=== PATIENT | male | born 1970 | race Caucasian/White ===

== ENCOUNTER 2020-10-31 05:18 | Inpatient (IN) | payer MEDICAID ==
[~2020-10-31] VITALS: Ht 170.2 cm; Wt 86.2 kg
--- NOTE | 2020-10-31 05:35 | NUR ---
pt danyelle c/o nosebleed that started at 0230. Pt aaox4 breathing evenly and unlabored. Per pt, he ran out of his hypertension meds x2 days ago and woke up with the nosebleed today. Pt also admits to "feeling my heart pounding" and being nauseous. Pt attached to monitor and pox. Pt given blanket and calllight within reach. will continue to monitor.
--- NOTE | 2020-10-31 05:53 | NUR ---
blood obtained and sent to lab
[2020-10-31 05:57] LABS: BASOPHILS % (AUTO) 0.4 % (0.0-2.0); EOSINOPHILS % (AUTO) 1.1 % (0.0-6.0); HEMATOCRIT 38 % (33-45); HEMOGLOBIN 12.5 g/dL (11.5-14.8); LYMPHOCYTES # (AUTO) 1.4 K/uL (0.8-4.8); LYMPHOCYTES % (AUTO) 44.1 % (20.0-44.0); MEAN CORPUSCULAR HGB CONC 33 g/dl (31.0-36.0); MEAN CORPUSCULAR VOLUME 88 fL (82-100); MONOCYTES # (AUTO) 0.1 K/uL (0.1-1.30); MONOCYTES % (AUTO) 3.3 % (2.0-12.0); NEUTROPHILS # (AUTO) 1.6 K/uL (1.8-8.9); NEUTROPHILS % (AUTO) 51.1 % (43.0-81.0); RED BLOOD CELL COUNT(AUTO) 4.27 MIL/uL (4.0-5.2); WHITE BLOOD COUNT (AUTO) 3.2 K/uL (4.3-11.0)
--- NOTE | 2020-10-31 06:00 | NUR ---
xray at bedside
[2020-10-31 06:13] LABS: CALCIUM, SERUM 7.9 mg/dL (8.5-10.1); CREATININE 0.7 mg/dL (0.6-1.3); POTASSIUM 3.4 mmol/L (3.5-5.1)
[2020-10-31 06:19] LABS: ALBUMIN 3.5 g/dL (3.4-5.0); BILIRUBIN,DIRECT 0.6 mg/dL (0.0-0.2); BILIRUBIN,TOTAL 1.3 mg/dL (0.2-1.0)
[2020-10-31] MEDS ORDERED: LORAZEPAM INJ 2 MG/ML VIAL ONE (06:42)
[2020-10-31] MEDS ORDERED: IV NS 0.9% 1,000 ML IV ONE (07:00)
[2020-10-31] MEDS ORDERED: LORAZEPAM INJ 2 MG/ML VIAL IV ONE (07:00)
--- NOTE | 2020-10-31 07:20 | NUR ---
gave report to VIV Pitts for jennifer
[2020-10-31] MEDS ORDERED: ASPIRIN 81 MG TAB.CHEW PO ONE (08:00)
[2020-10-31] MEDS ORDERED: ONDANSETRON HCL/PF 4 MG/2 ML VIAL IV ONE (08:00)
[2020-10-31 08:04] LABS: PLATELET COUNT (AUTO) 41 K/uL (150-450)
[2020-10-31 08:08] LABS: EOSINOPHILS % (MANUAL) 2 % (0-4); LYMPHOCYTES % (MANUAL) 43 % (16-48); MONOCYTES % (MANUAL) 3 % (0-11.0); NEUTROPHILS % (MANUAL) 52 (42-76)
[2020-10-31] MEDS ORDERED: ASPIRIN 81 MG TAB.CHEW ONE (08:18)
[2020-10-31] MEDS ORDERED: ONDANSETRON HCL/PF 4 MG/2 ML VIAL ONE (08:18)
--- NOTE | 2020-10-31 08:28 | NUR ---
COVID ANTIGEN SWAB DONE AND SENT TO LAB
[2020-10-31 08:40] LABS: ALCOHOL, BLOOD 209 mg/dL (0-0); LIPASE 315 U/L (73-393)
[2020-10-31] MEDS ORDERED: IV NS 0.9% 1,000 ML IV PRN (10:00)
[2020-10-31] MEDS ORDERED: ONDANSETRON HCL/PF 4 MG/2 ML VIAL IVP PRN (10:00)
[2020-10-31] MEDS ORDERED: ACETAMINOPHEN 325 MG TABLET PO PRN (10:00)
[2020-10-31] MEDS ORDERED: MAG HYDROX/AL HYDROX/SIMETH 30 ML UDC PO PRN (10:00)
[2020-10-31] MEDS ORDERED: POTASSIUM CHLORIDE 20 MEQ TAB.PRT.SR PO ONE (10:12)
[2020-10-31] MEDS: POTASSIUM CHLORIDE 20 MEQ TAB.PRT.SR PO SCH ×3 (10:19→12:17)
--- NOTE | 2020-10-31 10:53 | NUR ---
ROOM 315-2
--- NOTE | 2020-10-31 11:05 | NUR ---
REPORT GIVEN TO ELEN NAM
--- NOTE | 2020-10-31 11:10 | NUR ---
DRYWALL STRIPPER NOTE PT IN 315-2 VIA AUGUST. V/S CHECKED. PT AWAKE IN BED RESTING. ON RA WITH NO SOB OR RESPIRATORY DISTRESS PRESENT. A/O X4 AND URDU SPEAKING. NO COMPLAINT OF PAIN OR NAUSEA. CURRENTLY ON WEB APPLICATIONS ARCHITECT. NO EDEMA PRESENT. PT IS AMBULATORY WITH STEADY GAIT AND BATHROOM PRIVILEGES. SKIN IS INTACT.IV PRESENT ON L AC 20G AND FLUSHES WELL. NS RUNNING AT 75 ML/HR. LABS AND ORDERS REVIEWED. SAFETY MEASURES IN PLACE. SIDE RAILS RAISED. BED LOWERED. CALL LIGHT WITHIN REACH. WILL CONTINUE TO MONITOR.
--- NOTE | 2020-10-31 11:30 | NUR ---
RN NOTE PT STARTED NOSEBLEED, SATURATING 50% OF GAUZE SPONGES. ICE GIVEN, EDUCATION GIVEN TO PINCH NOSE AND LEAN FORWARD. DR NOTIFIED AND ORDERS RECEIVED. WILL CONTINUE TO MONITOR.
[2020-10-31] MEDS: METOPROLOL TARTRATE 50 MG TABLET PO SCH ×3 (11:33→23:04)
[2020-10-31] MEDS: LORAZEPAM INJ 2 MG/ML VIAL IV PRN (12:29)
[2020-10-31] MEDS ORDERED: PHYTONADIONE INJ 10 MG/1 ML AMPUL SQ ONE (12:30)
[2020-10-31 13:07] LABS: PHOSPHORUS 4.1 mg/dL (2.5-4.9)
[2020-10-31 13:08] LABS: THYROID STIMULATING HORMONE 1.07 uIU/mL (0.358-3.74)
[2020-10-31 13:23] LABS: MAGNESIUM 2.1 mg/dL (1.8-2.4)
[2020-10-31 14:40] LABS: HEMOGLOBIN 10.7 g/dL (13.5-17.5)
--- NOTE | 2020-10-31 15:00 | NUR ---
RN NOTE PT NOSEBLEED STOPPED. PT AWAKE IN BED. NO DIZZINESS OR HEADACHE PRESENT. WILL CONTINUE TO MONITOR.
[2020-10-31] MEDS ORDERED: METO-357 PO (15:40)
--- NOTE | 2020-10-31 18:13 | NUR ---
RN CLOSING NOTE PT AWAKE IN BED RESTING. ON RA WITH NO SOB OR RESPIRATORY DISTRESS PRESENT. A/O X4 AND PASHTO SPEAKING. NO COMPLAINT OF PAIN OR NAUSEA. CURRENTLY ON MEDICAL PLANNER. NO EDEMA PRESENT. PT IS AMBULATORY WITH STEADY GAIT AND BATHROOM PRIVILEGES. SKIN IS INTACT.IV PRESENT ON L AC 20G AND FLUSHES WELL. NS RUNNING AT 75 ML/HR. LABS AND ORDERS REVIEWED. ROUTINE MEDS GIVEN. SAFETY MEASURES IN PLACE. SIDE RAILS RAISED. BED LOWERED. CALL LIGHT WITHIN REACH. WILL GIVE REPORT TO NIGHT NURSE FOR VICTOR HUGO.
--- NOTE | 2020-10-31 19:00 | NUR ---
opening notes: alert and orientated X3 soft spoken will make his needs known juice offered and assisted with swallows w/o problem asp precautions call light reviewed with him and he reassusred me "I know how it works!" near the nursing station.no sob 02 on2 liters Addendum: 11/01/20 at 0146 by CRUZITO LOPEZ RN above charting done on the wrong patient disregard
--- NOTE | 2020-10-31 19:00 | NUR ---
received patient ambilating in his room alert and orientated smiling no nose bleeding
[2020-10-31 20:00] VITALS: BP 139/65
[2020-11-01] VITALS: BP 136/72
[2020-11-01] MEDS: LORAZEPAM INJ 2 MG/ML VIAL IV PRN (03:08)
[2020-11-01 04:00] VITALS: BP 138/66
[2020-11-01] MEDS: METOPROLOL TARTRATE 50 MG TABLET PO SCH ×2 (06:57→12:34)
[2020-11-01 07:11] LABS: BASOPHILS % (AUTO) 0.2 % (0.0-2.0); EOSINOPHILS % (AUTO) 2.2 % (0.0-6.0); HEMATOCRIT 35 % (39-51); HEMOGLOBIN 11.6 g/dL (13.5-17.5); LYMPHOCYTES # (AUTO) 0.9 K/uL (0.8-4.8); LYMPHOCYTES % (AUTO) 26.5 % (20.0-44.0); MEAN CORPUSCULAR HGB CONC 33 g/dl (31.0-36.0); MEAN CORPUSCULAR VOLUME 90 fL (80-96); MONOCYTES # (AUTO) 0.4 K/uL (0.1-1.30); MONOCYTES % (AUTO) 10.7 % (2.0-12.0); NEUTROPHILS # (AUTO) 2.1 K/uL (1.8-8.9); NEUTROPHILS % (AUTO) 60.4 % (43.0-81.0); RED BLOOD CELL COUNT(AUTO) 3.89 MIL/uL (4.5-6.0); WHITE BLOOD COUNT (AUTO) 3.5 K/uL (4.3-11.0)
[2020-11-01 07:28] LABS: PLATELET COUNT (AUTO) 34 K/uL (150-450)
--- NOTE | 2020-11-01 07:30 | NUR ---
LIEUTENANT FIREFIGHTER NOTES PT IN BED, AWAKE, ALERT AND ORIENTED, DENIES PAIN OR ANY DISCOMFORT, STATES HE FEELS BETTER TODAY, IV FLUIDS INFUSING WELL, CALL LIGHT WITHIN REACH.
[2020-11-01 07:33] LABS: ALBUMIN 3.2 g/dL (3.4-5.0); BILIRUBIN,TOTAL 2.9 mg/dL (0.2-1.0); CREATININE 0.7 mg/dL (0.6-1.3); MAGNESIUM 1.8 mg/dL (1.8-2.4); PHOSPHORUS 3.2 mg/dL (2.5-4.9); POTASSIUM 4.3 mmol/L (3.5-5.1); TOTAL PROTEIN, SERUM 7.1 g/dL (6.4-8.2)
--- NOTE | 2020-11-01 07:37 | NUR ---
CLOSING NOTES: NSR THIS 12 HOURS ALERT AND ORIENTATED X4 AMBULATES IN THE ROOM NO SOB NO EDEMA NO C/O CHEST PAIN MEDICATED X1 WITH ATIVAN D/T UNABLE TO GO TO SLEEP D/T INSOMNIA..ATIVAN EFFCTIVE X3 HOURS NO NOSE BLEED THIS 12 HOURS
[2020-11-01 08:00] VITALS: BP 142/96
[2020-11-01 08:26] LABS: EOSINOPHILS % (MANUAL) 2 % (0-4); LYMPHOCYTES % (MANUAL) 29 % (16-48); MONOCYTES % (MANUAL) 7 % (0-11.0); NEUTROPHILS % (MANUAL) 62 (42-76)
[2020-11-01] MEDS ORDERED: METO50TA16 PO (11:27)
[2020-11-01 12:34] VITALS: BP 138/78
--- NOTE | 2020-11-01 13:24 | NUR ---
RN MS NOTES PT SEEN AND EXAMINED BY DR. PALM, PLAN OF CARE DISCUSSED WITH PT, VERBALIZED UNDERSTANDING, PT TO RECEIVE I UNIT OF PLATELET TRANSFUSION BEFORE BEING DISCHARGED.
--- NOTE | 2020-11-01 15:30 | NUR ---
RN MS NOTES PT AWAKE, ALERT AND ORIENTED, WALKING INSIDE HIS ROOM, NO COMPLAINT OF PAIN, NOT IN DISTRESS, NO SIGNS OF BLEEDING, SEEN BY DR. PALM TODAY, PT REFUSED TO PROCEED WITH PLATELET TRANSFUSION, STATED THAT HE NEEDS TO GO HOME NOW, PT EDUCATION PROVIDED REGARDING THE RISK OF HAVING A LOW PLATELET AND THE RISK OF BLEEDING, VERBALIZED UNDERSTANDING BUT CAN NO LONGER WAIT FOR THE PLATELET TO BE AVAILABLE, PER BLOOD BANK THEY DONT HAVE A SPECIFIC TIME TO WHEN THE PLATELET WILL BE READY THEY ORDER IT FROM OUTSIDE, PT STATED THAT HE WOULD LIKE TO BE DISCHARGED, DR. PALM INFORMED, DISCHARGE AND MEDICATION INSTRUCTIONS PROVIDED TO PT, INSTRUCTED PT TO SEE HIS PCP SOON POSSIBLE AND TO RETURN TO E.R. IN CASE OF EMERGENCY, BELONGINGS ACCOUNTED FOR, PRESCRIPTION GIVEN TO PT, ASSISTED TO HOSPITAL LOBBY, WILL BE PICKED UP BY HIS SISTER VIA [employer]ATE CAR.
== END 2020-11-01 15:30 | disposition home or self-care (01) | DRG 199 ==
LOC: ER 05:24 → EDSEX 05:24 → TELE 10:58 → MED 11-01 09:21
PROVIDERS: ADMIT Nurse Practitioner Acute Care; ATTEND Nurse Practitioner Acute Care
DX: I16.0 Hypertensive urgency (principal); D61.818 Other pancytopenia; I21.A1 Myocardial infarction type 2; G92 Toxic encephalopathy; D69.6 Thrombocytopenia, unspecified; Z88.0 Allergy status to penicillin; I10 Essential (primary) hypertension; F10.229 Alcohol dependence with intoxication, unspecified; R04.0 Epistaxis; K74.60 Unspecified cirrhosis of liver; E87.6 Hypokalemia; D64.9 Anemia, unspecified; D62 Acute posthemorrhagic anemia
CPT/HCPCS: 36415; 71045-TC; 80048-TC; 80053-TC; 80061-TC; 80076-TC; 82728-TC; 83540-TC; 83690-TC; 83735-TC; 84100-TC; 84439-TC; 84443-TC; 84484-TC; 85025-TC; 85027-TC; 85730-TC; 86850-TC; 87081-TC; 93307-TC; C9803; G0378; G0480; J2060; J2405; J3430; J7030

== ENCOUNTER 2020-11-29 22:50 | Inpatient (IN) | payer MEDICAID ==
[~2020-11-29] VITALS: Ht 170.2 cm; Wt 81.6 kg
[~2020-11-29 22:50] MED LIST: METO50TA16 PO
--- NOTE | 2020-11-29 23:07 | NUR ---
TO BED 4, A/OX3, C/O CHEST PRESSURE 6/10 NONRADIATING. ALSO C/O NAUSEA
--- NOTE | 2020-11-29 23:25 | NUR ---
XRAY AT BEDSIDE
--- NOTE | 2020-11-29 23:55 | NUR ---
MRSA SWAB COLLECTED AND SENT TO LAB. PATIENT'S BELONGINGS LIST DONE.
[2020-11-30 00:04] LABS: BASOPHILS % (AUTO) 0.3 % (0.0-2.0); HEMATOCRIT 41 % (39-51); HEMOGLOBIN 13.5 g/dL (13.5-17.5); LYMPHOCYTES # (AUTO) 3.3 K/uL (0.8-4.8); LYMPHOCYTES % (AUTO) 50.7 % (20.0-44.0); MEAN CORPUSCULAR HGB CONC 33 g/dl (31.0-36.0); MEAN CORPUSCULAR VOLUME 88 fL (80-96); MONOCYTES # (AUTO) 0.2 K/uL (0.1-1.30); MONOCYTES % (AUTO) 3.8 % (2.0-12.0); NEUTROPHILS # (AUTO) 2.9 K/uL (1.8-8.9); NEUTROPHILS % (AUTO) 44.2 % (43.0-81.0); PLATELET COUNT (AUTO) 62 K/uL (150-450); RED BLOOD CELL COUNT(AUTO) 4.65 MIL/uL (4.5-6.0); WHITE BLOOD COUNT (AUTO) 6.6 K/uL (4.3-11.0)
[2020-11-30 00:17] LABS: CALCIUM, SERUM 7.5 mg/dL (8.5-10.1); CREATININE 0.8 mg/dL (0.6-1.3); POTASSIUM 3.9 mmol/L (3.5-5.1)
--- NOTE | 2020-11-30 00:18 | NUR ---
PER LAB, LUZ Buckner MD AWARE
[2020-11-30 00:23] LABS: ALBUMIN 3.5 g/dL (3.4-5.0); BILIRUBIN,DIRECT 0.5 mg/dL (0.0-0.2); BILIRUBIN,TOTAL 1.2 mg/dL (0.2-1.0); TOTAL PROTEIN, SERUM 8.1 g/dL (6.4-8.2)
--- NOTE | 2020-11-30 00:39 | NUR ---
DR. BRIGHT ON PHONE WITH DR. OVALLE
--- NOTE | 2020-11-30 00:47 | NUR ---
DR. GARY FIELDS FOR PANEL
[2020-11-30] MEDS ORDERED: HYDROCODONE/APAP 5/325MG TABLET PO PRN (01:00)
[2020-11-30] MEDS ORDERED: MAG HYDROX/AL HYDROX/SIMETH 30 ML UDC PO PRN (01:00)
[2020-11-30] MEDS ORDERED: Z GUARD REMEDY 2 OZ OINT TP PRN (01:00)
[2020-11-30] MEDS ORDERED: MAGNESIUM HYDROXIDE 30 ML UDC PO PRN (01:00)
[2020-11-30] MEDS ORDERED: NITROGLYCERIN 0.4 MG/TAB BOTTLE SL PRN (01:00)
[2020-11-30] MEDS ORDERED: MORPHINE SULFATE INJ 2 MG/ML DISP.SYRIN IV PRN (01:00)
[2020-11-30] MEDS ORDERED: ZOLPIDEM TARTRATE 5 MG TABLET PO PRN (01:00)
[2020-11-30] MEDS ORDERED: ACETAMINOPHEN 325 MG TABLET PO PRN (01:00)
[2020-11-30 01:15] LABS: NEUTROPHILS % (MANUAL) 49 (42-76)
[2020-11-30 01:16] LABS: BASOPHILS % (MANUAL) 0 % (0.0-2.0); EOSINOPHILS % (MANUAL) 0 % (0-4); LYMPHOCYTES % (MANUAL) 46 % (16-48); MONOCYTES % (MANUAL) 5 % (0-11.0)
--- NOTE | 2020-11-30 03:10 | NUR ---
Informed dr. feliberto beck that patient states he is experiencing anxiety and would like medication. there is no PRN order. awaiting call back from .
[2020-11-30] MEDS: IV D5/0.45 NACL 1,000 ML IV PRN ×2 (03:16→15:01)
[2020-11-30] MEDS ORDERED: LORAZEPAM INJ 2 MG/ML VIAL ONE (04:39)
[2020-11-30] MEDS: LORAZEPAM INJ 2 MG/ML VIAL IV PRN ×3 (04:40→21:00)
[2020-11-30] MEDS: METOPROLOL TARTRATE 50 MG TABLET PO SCH ×3 (06:34→17:13)
[2020-11-30] MEDS ORDERED: METOPROLOL TARTRATE 50 MG TABLET ONE (06:34)
--- NOTE | 2020-11-30 07:30 | NUR ---
ASSESSED PT ON BED AWAKE AND ALERT, NOT IN RESPIRATORY DISTRESS, V/S STABLE, KEPT RESTED AND COMFORTABLE. WILL CONTINUE TO MONITOR.
[2020-11-30] MEDS ORDERED: PANTOPRAZOLE 40 MG TABLET.DR PO ONE (07:36)
[2020-11-30] MEDS: PANTOPRAZOLE 40 MG TABLET.DR PO SCH (07:40)
--- NOTE | 2020-11-30 09:40 | NUR ---
TELE/RN NOTES RECEIVED REPORT FORM [facility]LE ER NURSE A 49 Y/O MALE PATIENT, AWAKE , ALERT AND ORIENTED X4. PATIENT IN ON ROOM AIR. PATIENT IN NO APPARENT RESPIRATORY DISTRESS NOTED. NO COMPLAINED OF PAIN NOTED. IV ACCESS AT LEFT AC #18 G WITH IV FLUID OF D5NS 1L AT 75ML/HR ON AND INFUSING WELL. INITIAL ASSESSMENT WAS DONE, VITAL SIGN TAKEN AND RECORDED. PATIENT REFUSED SKIN ASSESSMENT AND PATIENT VERBALIZED HE DOESN'T HAVE SKIN PROBLEM OR WOUND. TELE MONITOR READING SINUS RHYTHM 86BPM. WILL CONTINUE TO MONITOR.
[2020-11-30 10:00] VITALS: BP 139/70
[2020-11-30] MEDS: THIAMINE HCL 100 MG TABLET PO SCH (11:24)
[2020-11-30] MEDS: ONDANSETRON HCL/PF 4 MG/2 ML VIAL IVP PRN (13:09)
--- NOTE | 2020-11-30 13:09 | NUR ---
RN NOTE PATIENT COMPLAINED OF NAUSEA AND FEELING IF HE WAS GOING TO THROW UP. PATIENT ASKED FOR PRN ANTINAUSEA MEDICATION. WILL GIVE MEDICATION ORDERED
[2020-11-30 16:33] VITALS: BP 140/67
--- NOTE | 2020-11-30 18:57 | NUR ---
MS/RN CLOSING NOTES PATIENT IS ALERT AND ORIENTED X4. PATIENT IS ON ROOM AIR. PATIENT IN NO APPARENT RESPIRATORY DISTRESS NOTED. NO COMPLAINED OF PAIN NOTED AT THIS TIME. SEEN AND EXAMINED BY MD WITH ORDERS MADE AND CARRIED OUT. ALL DUE MEDICATIONS WAS GIVEN. IV ACCESS AT LEFT AC # 18G WITH IV FLUID OF D5NS 1L AT 75ML/HR ON AND INFUSING WELL. SAFETY PRECAUTIONS WAS IN PLACED. BED IN LOWEST POSITION AND LOCKED. SIDERAILS UP X2. CALL LIGHT WITHIN REACH. PATIENT SHOW A RED SPUTUM. WILL ENDORSED TO SENIOR PRODUCT DEVELOPMENT MANAGER FOR VICTOR HUGO.
--- NOTE | 2020-11-30 19:56 | NUR ---
MS RN OPENING RECEIVED PATIENT IN BED, AWAKE AND ALERT X4. PATIENT IN HIS OWN CLOTHING (SHIRT AND PANTS). NO S/S OF APPARENT DISTRESS ON ROOM AIR. DENIES PAIN. PATIENT HAS IV D5NS RUNNING @75 ML/HR. IT WAS ENDORSED TO ME THAT PATIENT REFUSED SKIN ASSESSMENT -- WHEN ASKED AGAIN, PATIENT SAID NO AND THAT HE HAS NO OPEN WOUNDS -- WILL TRY AGAIN. SAFETY IN PLACE. WILL CONTINUE TO MONITOR.
[2020-11-30 20:00] VITALS: BP 142/64
--- NOTE | 2020-11-30 21:00 | NUR ---
ms rn note patient reporting feeling going to withdrawal, per patient he want's to sleep as well. given Ativan 1mg. will continue to monitor.
--- NOTE | 2020-11-30 22:08 | NUR ---
ms rn note an hour later checked on patient.. reporting he still cannot sleep. given ambien 5mg PRN. will continue to monitor.
[2020-12-01] MEDS: METOPROLOL TARTRATE 50 MG TABLET PO SCH ×3 (00:01→12:13)
[2020-12-01] MEDS: ONDANSETRON HCL/PF 4 MG/2 ML VIAL IVP PRN (05:05)
[2020-12-01] MEDS: LORAZEPAM INJ 2 MG/ML VIAL IV PRN (07:03)
[2020-12-01] MEDS: PANTOPRAZOLE 40 MG TABLET.DR PO SCH (07:03)
--- NOTE | 2020-12-01 07:10 | NUR ---
ms rn note ativan given at this time per patient request.
--- NOTE | 2020-12-01 07:11 | NUR ---
ms rn closing patient in sitting in bed. still in his own cloathing -- per patient it's more comfortable for him. patient has no apparent distress, tolerating room air. no c/o pain, eager to go home. IV d5 1/2 ns running @75ml/hr. all needs attended, all sched meds administered. safety in place. will endorse care to morning shift rn for continuation of care
--- NOTE | 2020-12-01 07:30 | NUR ---
MS RN OPENING NOTES RECEIVED PATIENT IN BED AWAKE IN NO ACUTE SIGNS OF DISTRESS. A/O X3. ABLE TO MAKE NEEDS KNOWN, DENIES PAIN OR ANY DISCOMFORTS AT THIS TIME. PT IN HIS CIVILIAN CLOTHES AND REFUSED TO WEAR HOSPITAL GOWN. ON ROOM AIR, BREATHING EVEN AND UNLABORED. IV ACCESS ON LAC G#18 INTACT AND PATENT, IVF OF D5 1/2NS RUNNING @75 ML/HR, NO S/S OF INFILTRATIONS AT SITE NOTED. SAFETY MEASURES IN PLACE: BED IN LOWEST LOCKED POSITION WITH SR UP X2, CALL LIGHT W/I REACH. WILL CONTINUE TO MONITOR.
[2020-12-01 08:00] VITALS: BP 148/91
[2020-12-01] MEDS: THIAMINE HCL 100 MG TABLET PO SCH (08:12)
[2020-12-01] MEDS ORDERED: PANT40TA2 PO (09:00)
[2020-12-01] MEDS ORDERED: THIA100T88 PO (09:00)
[2020-12-01 09:30] LABS: BASOPHILS % (AUTO) 0.4 % (0.0-2.0); CALCIUM, SERUM 8.7 mg/dL (8.5-10.1); CREATININE 0.7 mg/dL (0.6-1.3); EOSINOPHILS % (AUTO) 0.5 % (0.0-6.0); HEMATOCRIT 36 % (39-51); HEMOGLOBIN 12.2 g/dL (13.5-17.5); LYMPHOCYTES # (AUTO) 0.8 K/uL (0.8-4.8); LYMPHOCYTES % (AUTO) 22.5 % (20.0-44.0); MAGNESIUM 1.9 mg/dL (1.8-2.4); MEAN CORPUSCULAR HGB CONC 34 g/dl (31.0-36.0); MEAN CORPUSCULAR VOLUME 89 fL (80-96); MONOCYTES # (AUTO) 0.3 K/uL (0.1-1.30); MONOCYTES % (AUTO) 7.1 % (2.0-12.0); NEUTROPHILS # (AUTO) 2.5 K/uL (1.8-8.9); NEUTROPHILS % (AUTO) 69.5 % (43.0-81.0); PHOSPHORUS 3.4 mg/dL (2.5-4.9); RED BLOOD CELL COUNT(AUTO) 4.09 MIL/uL (4.5-6.0); WHITE BLOOD COUNT (AUTO) 3.6 K/uL (4.3-11.0)
[2020-12-01 09:35] LABS: PLATELET COUNT (AUTO) 34 K/uL (150-450)
[2020-12-01 09:49] LABS: THYROID STIMULATING HORMONE 1.805 uIU/mL (0.358-3.74)
--- NOTE | 2020-12-01 10:07 | NUR ---
RN NOTES RECEIVED CALL FROM WAREHOUSE OPERATOR HASEEB PATRICK THAT PT HAS CRITICAL LOW PLATELETS 34. DR BARDALES ON UNIT AND MADE AWARE.
--- NOTE | 2020-12-01 11:30 | NUR ---
SS note SS requested to provide pt with substance use resources. Pt is a 49-year-old, male. SW met with pt at his bedside in the med-surg unit. Pt was alert and oriented x4. Pt presented with an anxious mood and affect. Pt appeared appropriately groomed. Pt stated that he has access to social support and currently lives with his family at [address] [place] [address]; [phone]. Pt plans to return to his prior living arrangement at the time of D/C. Pt will be provided transportation from his son, Chikis, . Pt asked SW for substance use resources for alcohol use. SW offered the pt substance use resources. Pt accepted the resources and thanked SW, stating that he plans to look into AA. PLAN Pt plans to return to his prior living arrangement at the time of D/C and will be picked up by his son. No further SS intervention at this time, however, SW will remain available as needed. RESOURCES Substance use resources provided included: [facility] Substance Abuse Self-Helpline ([facility]) ; [facility] [address] [facility] [id number] ; [facility] [address] [facility] [phone] ; [facility] [address] [facility] [id number] ; [facility] [address] [facility] [phone] ; [facility] [address] [facility] [phone] ; [facility]; [facility] [place]; [facility]; [facility]
[2020-12-01 12:13] VITALS: BP 132/77
--- NOTE | 2020-12-01 14:50 | NUR ---
RN DISCHARGED NOTES PT DISCHARGED HOME IN STABLE CONDITION. A/O X3-4. ABLE TO MAKE NEEDS KNOWN. AMBULATORY WITH STEADY GAIT. SW CAME, EXPLAINED AND GAVE PT ADDICTION RESOURCES FOR DRUGS AND ALCOHOL. V/S TAKEN, STABLE AND RECORDED. ALL BELONGINGS ACCOUNTED FOR AND SIGNED FORM. IV ACCESS ON LAC #18 REMOVED WITH NO ACTIVE BLEEDING NOTED, DRY PRESSURE DRESSING APPLIED TO SITE. NAME ARMBAND REMOVED. HEALTH TEACHINGS GIVEN TO PT ESPECIALLY ALCOHOL CESSATION AND VERBALIZED UNDERSTANDING. PT LEFT UNIT @ 1435 AMBULATORY ACCOMPANIED BY ME TO LOBBY. PT'S SON MYRA IN HIS CAR JUST OUTSIDE THE LOBBY WAITING AND TO TAKE PT'S HOME. CHARGE NURSE AWARE OF DISCHARGE.
== END 2020-12-01 14:40 | disposition home or self-care (01) | DRG 190 ==
LOC: ER 22:57 → TRANSITION 11-30 01:33 → TELE 11-30 08:27 → MED 11-30 15:11
PROVIDERS: ADMIT Nurse Practitioner Acute Care; ATTEND Nurse Practitioner Acute Care
DX: I21.4 Non-ST elevation (NSTEMI) myocardial infarction (principal); D69.59 Other secondary thrombocytopenia; K70.9 Alcoholic liver disease, unspecified; I25.2 Old myocardial infarction; I10 Essential (primary) hypertension; K29.20 Alcoholic gastritis without bleeding; Y90.8 Blood alcohol level of 240 mg/100 ml or more; F10.229 Alcohol dependence with intoxication, unspecified; Z98.890 Other specified postprocedural states; Z88.0 Allergy status to penicillin; Z79.899 Other long term (current) drug therapy; Z20.822 Contact with and (suspected) exposure to COVID-19; R04.0 Epistaxis
CPT/HCPCS: 36415; 71045-TC; 80048-TC; 80061-TC; 80076-TC; 83735-TC; 84100-TC; 84443-TC; 84484-TC; 85025-TC; 85730-TC; 87081-TC; G0378; G0480; J2060; J2405; J3490; J7042

== ENCOUNTER 2020-12-02 07:19 | Emergency (ER) | payer MEDICAID ==
[~2020-12-02] VITALS: Ht 170.2 cm; Wt 83.9 kg
[~2020-12-02 07:19] MED LIST changes: +PANT40TA2 PO; +THIA100T88 PO
[2020-12-02 07:25] VITALS: BP 136/74
--- NOTE | 2020-12-02 07:42 | NUR ---
49 YEARS OLD MALE WITH HISTORY OF ETOH PRESENTS TO ER FOR HALLUCINATION, DENIES SI DANGER TO SELF/OTHERS, LAST ALCOHOL TUESDAY NO TREMORS SAFETY MAINTAINED.
[2020-12-02] MEDS ORDERED: LORAZEPAM 0.5 MG TABLET ONE (07:56)
[2020-12-02] MEDS ORDERED: LORAZEPAM 1 MG TABLET PO ONE (08:00)
--- NOTE | 2020-12-02 08:07 | NUR ---
ATIVAN PO GIVEN SA PRESCRIBED TOLERATED WELL CONDITION IMPROVED D/C HOME WITH INSTRUCTIONS AFTER CARE REVIEWED UNDERSTOOD LEFT ER AMBULATORY WITH STEADY GAIT.
== END 2020-12-02 08:09 | disposition home or self-care (01) ==
LOC: ER 07:24
DX: F10.951 Alcohol use, unspecified with alcohol-induced psychotic disorder with hallucinations (principal); I10 Essential (primary) hypertension; K21.9 Gastro-esophageal reflux disease without esophagitis; I25.2 Old myocardial infarction; Z98.890 Other specified postprocedural states; Z88.0 Allergy status to penicillin; Z79.899 Other long term (current) drug therapy; Y90.9 Presence of alcohol in blood, level not specified

== ENCOUNTER 2021-05-12 17:52 | Inpatient (IN) | payer MEDICAID ==
[~2021-05-12] VITALS: Ht 170.2 cm; Wt 77.1 kg
[2021-05-12] MEDS ORDERED: LORAZEPAM INJ 2 MG/ML VIAL IV ONE (18:30)
[2021-05-12] MEDS ORDERED: LORAZEPAM INJ 2 MG/ML VIAL ONE (18:35)
--- NOTE | 2021-05-12 19:05 | NUR ---
PT BIBRA C/O CHEST TIGHTNESS XNOON TODAY WITH N/V. PT ADMITS TO DRINKING TODAY. PT GIVEN ZOFRAN 4MG, ASPIRIN 324MG AND 1 SPRAY OF NITRO AUTOMOTIVE SALES ASSOCIATE. PT AAOX 4 BREATHING EVENLY AND UNLABORED. PT ATTACHED TO MONITOR AND POX. PT GIVEN BLANKET AND CALL LIGHT WITHIN REACH
--- NOTE | 2021-05-12 19:05 | NUR ---
REC'D REPORT FROM VIV PENA FOR VICTOR HUGO
[2021-05-12 19:12] LABS: CALCIUM, SERUM 7.9 mg/dL (8.5-10.1); CREATININE 0.6 mg/dL (0.6-1.3); POTASSIUM 3.3 mmol/L (3.5-5.1)
--- NOTE | 2021-05-12 19:25 | NUR ---
PER MD, GIVE LOVENOX WITH PLATELETS RESULT PENDING. NO SIGN OF ABNORMAL BLEEDING NOTED.
--- NOTE | 2021-05-12 19:28 | NUR ---
CALLED LAB FOR RESULT F/U. PER LAB, MACHINE DOWN UNTIL 2015
[2021-05-12] MEDS ORDERED: ENOXAPARIN SODIUM 80 MG/0.8 ML DISP.SYRIN SQ ONE ×2 (19:30→19:33)
--- NOTE | 2021-05-12 19:45 | NUR ---
COVID SWAB SENT TO LAB
[2021-05-12 20:08] LABS: BASOPHILS % (AUTO) 0.6 % (0.0-2.0); EOSINOPHILS % (AUTO) 0.6 % (0.0-6.0); HEMATOCRIT 40 % (39-51); HEMOGLOBIN 13.2 g/dL (13.5-17.5); LYMPHOCYTES % (AUTO) 47.4 % (20.0-44.0); MEAN CORPUSCULAR HGB CONC 33 g/dl (31.0-36.0); MEAN CORPUSCULAR VOLUME 85 fL (80-96); MONOCYTES # (AUTO) 0.1 K/uL (0.1-1.30); MONOCYTES % (AUTO) 5.3 % (2.0-12.0); NEUTROPHILS % (AUTO) 46.1 % (43.0-81.0); RED BLOOD CELL COUNT(AUTO) 4.68 MIL/uL (4.5-6.0); WHITE BLOOD COUNT (AUTO) 2.2 K/uL (4.3-11.0)
[2021-05-12 20:16] LABS: PLATELET COUNT (AUTO) 20 K/uL (150-450)
[2021-05-12 20:34] LABS: LYMPHOCYTES % (MANUAL) 45 % (16-48); MONOCYTES % (MANUAL) 4 % (0-11.0); NEUTROPHILS % (MANUAL) 51 (42-76)
[2021-05-12] MEDS ORDERED: MAGNESIUM HYDROXIDE 30 ML UDC PO PRN (21:00)
[2021-05-12] MEDS ORDERED: MAG HYDROX/AL HYDROX/SIMETH 30 ML UDC PO PRN (21:00)
[2021-05-12] MEDS ORDERED: LORAZEPAM INJ 2 MG/ML VIAL IV PRN (21:00)
[2021-05-12] MEDS ORDERED: TEMAZEPAM 15 MG CAPSULE PO PRN (21:00)
[2021-05-12] MEDS ORDERED: ACETAMINOPHEN 325 MG TABLET PO PRN (21:00)
[2021-05-12] MEDS ORDERED: HYDROCODONE/APAP 5/325MG TABLET PO PRN (21:00)
[2021-05-12] MEDS ORDERED: Z GUARD REMEDY 4 OZ OINT TP PRN (21:00)
--- NOTE | 2021-05-12 21:11 | NUR ---
TAKEN TO RADIOLOGY
[2021-05-12] MEDS ORDERED: METOCLOPRAMIDE HCL 10 MG/2 ML VIAL ONE (21:26)
[2021-05-12] MEDS ORDERED: METOCLOPRAMIDE HCL 10 MG/2 ML VIAL IV ONE (21:30)
[2021-05-12] MEDS ORDERED: POTASSIUM CHLORIDE 20 MEQ TAB.PRT.SR PO ONE (21:30)
--- NOTE | 2021-05-12 22:25 | NUR ---
GAVE REPORT TO VIV MARIEE FOR VICTOR HUGO
--- NOTE | 2021-05-12 22:30 | NUR ---
TELE/CONICAL MIXER NOTE RECEIVED REPORT FROM PRIVATE BRANCH EXCHANGE OPERATOR JEIMY. PATIENT ARRIVED TO UNIT VIA GURNEY AND 2 STAFF MEMBERS. PATIENT IS BEING ADMITTED FOR NSTEMI AND HYPOKALEMIA. PATIENT IS ALERT AND ORIENTED X 4. ABLE TO MAKE NEEDS KNOWN. C/O PAIN TO CHEST - ACHING, TIGHTNESS. DENIES SOB. WILL ADMINISTER PRN MEDICATION. PATIENT IS ON ROOM AIR WITH NO S/SX OF RESPIRATORY DISTRESS NOTED. IV ACCESS TO LEFT AC #20G INTACT AND PATENT. CONTINUES ON IVF NS @ 100ML/HR. TELE MONITOR IN PLACE WITH CURRENT READING SR HR 68. SKIN CHECK PERFORMED ON ADMISSION WITH NO SKIN ISSUES NOTED. PATIENT ORIENTED TO ROOM, CALL LIGHT AND UNIT. CALL LIGHT WITHIN REACH. ASPIRATION, FALL AND SAFETY PRECAUTIONS MAINTAINED. WILL CONTINUE TO MONITOR.
[2021-05-12] MEDS: IV NS 0.9% 1,000 ML IV PRN (22:44)
--- NOTE | 2021-05-12 23:00 | NUR ---
TELE/RN NOTE ADMINISTERED PRN MORPHINE FOR CHEST PAIN WITH PENDING EFFECT. PATIENT CURRENTLY RESTING IN BED. ALL NEEDS ATTENDED TO.
[2021-05-12] MEDS: MORPHINE SULFATE INJ 2 MG/ML DISP.SYRIN IV PRN (23:02)
[2021-05-12 23:30] VITALS: BP 134/80
[2021-05-13 00:03] VITALS: BP 134/80
[2021-05-13 04:00] VITALS: BP 132/69
--- NOTE | 2021-05-13 06:40 | NUR ---
TELE/RN CLOSING NOTE PATIENT CURRENTLY RESTING IN BED. AWAKE, ALERT AND ORIENTED X 4. ABLE TO MAKE NEEDS KNOWN. DENIES PAIN AT THIS TIME. CONTINUES ON ROOM AIR WITH NO S/SX OF RESPIRATORY DISTRESS NOTED. IV ACCESS TO LEFT AC #20G INTACT AND PATENT. CONTINUES ON IVF NS @ 100ML/HR. PATIENT AMBULATORY WITH STEADY GAIT. CALL LIGHT WITHIN REACH. ASPIRATION, FALL AND SAFETY PRECAUTIONS MAINTAINED. WILL ENDORSE PLAN OF CARE TO ONCOMING SHIFT.
[2021-05-13] MEDS: MORPHINE SULFATE INJ 2 MG/ML DISP.SYRIN IV PRN (07:02)
[2021-05-13] MEDS: ONDANSETRON HCL/PF 4 MG/2 ML VIAL IVP PRN ×3 (07:02→18:28)
[2021-05-13 07:20] LABS: BASOPHILS % (AUTO) 0.5 % (0.0-2.0); EOSINOPHILS % (AUTO) 1.2 % (0.0-6.0); HEMATOCRIT 35 % (39-51); HEMOGLOBIN 11.5 g/dL (13.5-17.5); LYMPHOCYTES # (AUTO) 0.8 K/uL (0.8-4.8); LYMPHOCYTES % (AUTO) 54.7 % (20.0-44.0); MEAN CORPUSCULAR HGB CONC 33 g/dl (31.0-36.0); MEAN CORPUSCULAR VOLUME 85 fL (80-96); MONOCYTES # (AUTO) 0.1 K/uL (0.1-1.30); MONOCYTES % (AUTO) 9.3 % (2.0-12.0); NEUTROPHILS # (AUTO) 0.5 K/uL (1.8-8.9); NEUTROPHILS % (AUTO) 34.3 % (43.0-81.0); RED BLOOD CELL COUNT(AUTO) 4.08 MIL/uL (4.5-6.0)
--- NOTE | 2021-05-13 07:29 | NUR ---
RN OPENING NOTES Patient seen comfortably lying in bed, breathing even and unlabored, no SOB, no apparent distress noted, denies any pain or discomfort at this time, no grimacing. Call light left within reach, safety precautions in place, brakes locked, side rails up X 2, will monitor closely for any changes.
[2021-05-13 07:39] LABS: WHITE BLOOD COUNT (AUTO) 1.4 K/uL (4.3-11.0)
[2021-05-13 07:40] LABS: PLATELET COUNT (AUTO) 17 K/uL (150-450)
--- NOTE | 2021-05-13 07:40 | NUR ---
Received a call from laboratory spoke to Donta, regarding patients WBC and platelet levels, hospitalist made aware and acknowledged. Patient seen comfortably lying in bed, no apparent distress noted, no s/s of bleeding, no unusual bruising noted, afebrile, will continue to monitor for any changes.
[2021-05-13 08:00] VITALS: BP 142/75
[2021-05-13] MEDS ORDERED: METO25TA20 PO (08:23)
[2021-05-13] MEDS: THIAMINE HCL 100 MG TABLET PO SCH (08:59)
[2021-05-13] MEDS: PANTOPRAZOLE 40 MG TABLET.DR PO SCH (08:59)
[2021-05-13] MEDS ORDERED: ASPIRIN 81 MG TAB.CHEW PO SCH (09:00)
[2021-05-13] MEDS: METOPROLOL TARTRATE 25 MG TABLET PO SCH ×2 (09:00→16:11)
[2021-05-13] MEDS ORDERED: ENOXAPARIN SODIUM 40 MG/0.4 ML DISP.SYRIN SQ SCH (09:00)
[2021-05-13] MEDS: FOLIC ACID 1 MG TABLET PO SCH (10:14)
[2021-05-13] MEDS: IV NS 0.9% 1,000 ML IV PRN ×2 (11:39→23:52)
[2021-05-13 11:45] LABS: POTASSIUM 3.7 mmol/L (3.5-5.1)
[2021-05-13 12:00] VITALS: BP 156/79
[2021-05-13 12:04] LABS: CALCIUM, SERUM 7.8 mg/dL (8.5-10.1); CREATININE 0.5 mg/dL (0.6-1.3); MAGNESIUM 1.8 mg/dL (1.8-2.4); PHOSPHORUS 4.2 mg/dL (2.5-4.9)
[2021-05-13 13:07] LABS: THYROID STIMULATING HORMONE 1.957 uIU/mL (0.358-3.74)
[2021-05-13 15:49] LABS: EOSINOPHILS % (MANUAL) 2 % (0-4); LYMPHOCYTES % (MANUAL) 55 % (16-48); MONOCYTES % (MANUAL) 8 % (0-11.0); NEUTROPHILS % (MANUAL) 35 (42-76)
[2021-05-13 16:00] VITALS: BP 153/72
--- NOTE | 2021-05-13 18:53 | NUR ---
RN CLOSING NOTES Patient lying in bed, no shortness of breath, respirations even and unlabored, remained afebrile during shift, denies any pain or discomfort at this time, no dizziness, no palpitations, no chest pain. All due medications given per MD order and tolerated well. Patient has an order for IV fluids (0.9NS at 100ml/hr) IV site on left antecubital patent, intact and IV fluids infusing well, no swelling, no redness, no c/o pain or discomfort at site. Anti-anxiety and anti-nausea medication given per MD order as needed, and noted with help. Kept clean and dry, call light left within reach, all needs attended, aspiration precautions observed at all times, kept head of bed elevated, safety precautions in place, frequent visual checks rendered, brakes locked, side rails up X 2, will endorse to next shift for continuity of care.
[2021-05-13 20:00] VITALS: BP 142/67
--- NOTE | 2021-05-13 20:05 | NUR ---
IN bed alert orientated X1 smiling made aware she needs to stay in bed bed alarms on No IV access Addendum: 05/13/21 at 2025 by CRUZITO LOPEZ RN WRONG PATIENT
--- NOTE | 2021-05-13 20:26 | NUR ---
received in bed alert and ORientated X$ denies nauses at this time mouthwash given as so he may rinse his mouth IV left AC infusing w/0 problems Tele momitor on SR 71 HR
[2021-05-14] VITALS: BP 139/66
[2021-05-14 00:11] VITALS: BP 139/66
[2021-05-14 04:00] VITALS: BP 149/77
--- NOTE | 2021-05-14 05:47 | NUR ---
ENGING NOTES: alert and orientated X4 IV infusing w/o problemss On room air sats 07% SR on the Monitor No SOB with ambulating to the bathrrom No chest pain ambulating to the bathroom slept 4 hours with Restoril as ordered for sleep good about calling for assist to the bathroom bed alarm in use.
[2021-05-14 07:14] LABS: BASOPHILS % (AUTO) 0.9 % (0.0-2.0); EOSINOPHILS % (AUTO) 2.3 % (0.0-6.0); HEMATOCRIT 37 % (39-51); HEMOGLOBIN 12.4 g/dL (13.5-17.5); LYMPHOCYTES # (AUTO) 0.6 K/uL (0.8-4.8); LYMPHOCYTES % (AUTO) 35.7 % (20.0-44.0); MEAN CORPUSCULAR HGB CONC 33 g/dl (31.0-36.0); MEAN CORPUSCULAR VOLUME 85 fL (80-96); MONOCYTES # (AUTO) 0.2 K/uL (0.1-1.30); MONOCYTES % (AUTO) 13.1 % (2.0-12.0); NEUTROPHILS # (AUTO) 0.8 K/uL (1.8-8.9); RED BLOOD CELL COUNT(AUTO) 4.39 MIL/uL (4.5-6.0)
--- NOTE | 2021-05-14 07:22 | NUR ---
Received a call from laboratory spoke to Donta, regarding patients platelet and WBC levels, hospitalist made aware and acknowledged. Patient seen comfortably lying in bed, no apparent distress noted, no s/s of bleeding, no unusual bruising noted, afebrile, will continue to monitor for any changes.
[2021-05-14 07:25] LABS: PLATELET COUNT (AUTO) 19 K/uL (150-450); WHITE BLOOD COUNT (AUTO) 1.8 K/uL (4.3-11.0)
--- NOTE | 2021-05-14 07:43 | NUR ---
RN OPENING NOTES Patient seen comfortably lying in bed, breathing even and unlabored, no SOB, no apparent distress noted, denies any pain or discomfort at this time, no grimacing. Patient has an order for IV fluids (NS at 100ml/hr) IV site on left antecubital patent, intact and IV fluids infusing well, no swelling, no redness, no c/o pain or discomfort at site. Call light left within reach, safety precautions in place, brakes locked, side rails up X 2, will monitor closely for any changes.
[2021-05-14 08:00] VITALS: BP 142/79
[2021-05-14] MEDS ORDERED: Folic Acid PO (09:13)
[2021-05-14] MEDS ORDERED: Thiamine HCL PO (09:13)
[2021-05-14] MEDS: THIAMINE HCL 100 MG TABLET PO SCH (09:20)
[2021-05-14 09:21] VITALS: BP 142/79
[2021-05-14] MEDS: FOLIC ACID 1 MG TABLET PO SCH (09:21)
[2021-05-14] MEDS: METOPROLOL TARTRATE 25 MG TABLET PO SCH (09:21)
[2021-05-14] MEDS: PANTOPRAZOLE 40 MG TABLET.DR PO SCH (09:21)
[2021-05-14 10:24] LABS: ALBUMIN 3.4 g/dL (3.4-5.0); BILIRUBIN,TOTAL 2.4 mg/dL (0.2-1.0); CALCIUM, SERUM 8.7 mg/dL (8.5-10.1); CREATININE 0.7 mg/dL (0.6-1.3); MAGNESIUM 1.8 mg/dL (1.8-2.4); PHOSPHORUS 3.5 mg/dL (2.5-4.9); POTASSIUM 3.7 mmol/L (3.5-5.1); TOTAL PROTEIN, SERUM 7.1 g/dL (6.4-8.2)
--- NOTE | 2021-05-14 11:45 | NUR ---
Patient to be discharged home today, no apparent distress noted, no shortness of breath, respirations even and unlabored, denies any pain or discomfort at this time, no dizziness, no palpitations, no chest pain, no bleeding, afebrile, vital signs within normal limits. Patient made aware of the situation, he signed all discharge paper works, all belongings taken, inventory list signed by patient. Health teaching provided, verbalized understanding and gratitude. Skin assessment done prior to discharge, skin intact, warm to touch, no pallor or cyanosis noted. Peripheral IV line on left antecubital removed prior to discharge, complete and intact, no excessive bleeding noted, site covered with dry dressing. Name wristband removed prior to discharge, surgical mask provided for patient to use. RUG BACKING STENCILER assisted patient going to the hospital parking lot via wheelchair, left unit at 1140am via private car, stable condition, exit care documents handed to patient.
--- NOTE | 2021-05-14 12:20 | NUR ---
SW attempted to meet with pt. to provide addiction resources however, pt. had already departed.
[2021-05-14 12:53] LABS: EOSINOPHILS % (MANUAL) 4 % (0-4); LYMPHOCYTES % (MANUAL) 28 % (16-48); MONOCYTES % (MANUAL) 12 % (0-11.0); NEUTROPHILS % (MANUAL) 56 (42-76)
== END 2021-05-14 12:30 | disposition home or self-care (01) | DRG 190 ==
LOC: ER 17:54 → TELE 22:17
PROVIDERS: ADMIT Nurse Practitioner Acute Care; ATTEND Internal Medicine
DX: I21.4 Non-ST elevation (NSTEMI) myocardial infarction (principal); D69.59 Other secondary thrombocytopenia; E83.51 Hypocalcemia; K70.30 Alcoholic cirrhosis of liver without ascites; E87.6 Hypokalemia; I10 Essential (primary) hypertension; D72.819 Decreased white blood cell count, unspecified; I25.2 Old myocardial infarction; F10.10 Alcohol abuse, uncomplicated; Y90.9 Presence of alcohol in blood, level not specified; Z20.822 Contact with and (suspected) exposure to COVID-19; Z91.14 Patient's other noncompliance with medication regimen
CPT/HCPCS: 36415; 70450-TC; 71045-TC; 80048-TC; 80053-TC; 80061-TC; 82728-TC; 83540-TC; 83735-TC; 84100-TC; 84439-TC; 84443-TC; 84484-TC; 85025-TC; 85730-TC; 87081-TC; 93307-TC; C9803; G0378; J1650; J2060; J2270; J2405; J2765; J7030

== ENCOUNTER 2021-12-28 12:55 | Emergency (ER) | payer MEDICAID ==
[~2021-12-28] VITALS: Ht 167.6 cm; Wt 81.6 kg
[~2021-12-28 12:55] MED LIST changes: +METO25TA20 PO; -METO50TA16 PO; -PANT40TA2 PO; -THIA100T88 PO
--- NOTE | 2021-12-28 12:55 | NUR ---
BIB RA 76 FROM HOME C/O L FLANK PAIN AND L HIP PAIN, PT HAS NOTABLE BRUISES ON HIS BACK AND HIP WITH 2IN LACERATION ON HIS L HIP S/P FALL XDAYS AGO, -KO. PT STATED HE IS ALSO GOING THROUGH ALCOHOL WITHDRAWALS AND C/O N/V/D, HAS HX OF LIVER CIRRHOSIS. PT IS A&OX4. ATTACHED TO MONITOR, SINUS TACH. AWAITING MD ORDERS.
[2021-12-28] MEDS ORDERED: ONDANSETRON HCL/PF 4 MG/2 ML VIAL ONE ×2 (13:44→15:11)
[2021-12-28] MEDS ORDERED: IOHEXOL-300 100 ML VIAL IV ONE (13:50)
[2021-12-28] MEDS: ONDANSETRON HCL/PF 4 MG/2 ML VIAL IVP ONE ×2 (13:55→15:16)
[2021-12-28] MEDS: IV NS 0.9% 1,000 ML BAG IV ONE ×2 (13:55→15:16)
--- NOTE | 2021-12-28 13:55 | NUR ---
IV ESTABLISHED R AC 18G. LABS DRAWN AND COLLECTED AT BEDSIDE
--- NOTE | 2021-12-28 13:59 | NUR ---
PT TAKEN TO CT VIA AUGUST
[2021-12-28 14:02] LABS: BASOPHILS % (AUTO) 0.5 % (0.0-2.0); EOSINOPHILS % (AUTO) 0.3 % (0.0-6.0); HEMATOCRIT 41 % (39-51); HEMOGLOBIN 14.2 g/dL (13.5-17.5); LYMPHOCYTES # (AUTO) 0.4 K/uL (0.8-4.8); LYMPHOCYTES % (AUTO) 17.7 % (20.0-44.0); MEAN CORPUSCULAR HGB CONC 34 g/dl (31.0-36.0); MEAN CORPUSCULAR VOLUME 91 fL (80-96); MONOCYTES # (AUTO) 0.1 K/uL (0.1-1.30); MONOCYTES % (AUTO) 4.3 % (2.0-12.0); NEUTROPHILS # (AUTO) 1.9 K/uL (1.8-8.9); NEUTROPHILS % (AUTO) 77.2 % (43.0-81.0); RED BLOOD CELL COUNT(AUTO) 4.54 MIL/uL (4.5-6.0); WHITE BLOOD COUNT (AUTO) 2.5 K/uL (4.3-11.0)
[2021-12-28 14:29] LABS: PLATELET COUNT (AUTO) 24 K/uL (150-450)
[2021-12-28 14:37] LABS: BILIRUBIN,DIRECT 3.2 mg/dL (0.0-0.2); CREATININE 0.7 mg/dL (0.6-1.3); POTASSIUM 3.5 mmol/L (3.5-5.1); TOTAL PROTEIN, SERUM 7.9 g/dL (6.4-8.2)
[2021-12-28] MEDS ORDERED: LORAZEPAM INJ 2 MG/ML VIAL ONE (15:12)
[2021-12-28] MEDS: LORAZEPAM INJ 2 MG/ML VIAL IV ONE (15:16)
--- NOTE | 2021-12-28 15:59 | NUR ---
URINE COLLECTED AND SENT
--- NOTE | 2021-12-28 17:32 | NUR ---
IV removed. Catheter intact and site benign. Pressure and 4x4 applied to site. No bleeding noted.Patient discharged to home in stable condition. Written and verbal after care instructions given. Patient verbalizes understanding of instruction.
[2021-12-28 17:35] LABS: BILIRUBIN,URINE SMALL (NEGATIVE); COLOR,URINE YELLOW (YELLOW); LEUKOCYTE ESTERASE ,URINE NEGATIVE (NEGATIVE); NITRITE, URINE NEGATIVE (NEGATIVE); PROTEIN,URINE NEGATIVE (NEGATIVE); UGLUCOSE NEGATIVE (NEGATIVE)
[2021-12-28 17:46] VITALS: BP 133/71
[2021-12-28 17:47] LABS: BACTERIA,URINE RARE /HPF (None Seen); HYALINE CASTS, URINE RARE /LPF (None Seen); MUCUS,URINE Few /LPF (None Seen); SQUAMOUS EPITHELIAL CELL,UR 0-2 /HPF (None Seen); WBC,URINE 0-2 /HPF (0-3)
[2021-12-28 23:01] LABS: BAND % (MANUAL) 3 % (0.0-5.0); BASOPHILS % (MANUAL) 0 % (0.0-2.0); EOSINOPHILS % (MANUAL) 0 % (0-4); LYMPHOCYTES % (MANUAL) 16 % (16-48); MONOCYTES % (MANUAL) 7 % (0-11.0); NEUTROPHILS % (MANUAL) 74 (42-76)
== END 2021-12-28 17:46 | disposition home or self-care (01) ==
LOC: ER 13:22
DX: S30.1XXA Contusion of abdominal wall, initial encounter (principal); S70.12XA Contusion of left thigh, initial encounter; F10.10 Alcohol abuse, uncomplicated; K70.9 Alcoholic liver disease, unspecified; R11.2 Nausea with vomiting, unspecified; I10 Essential (primary) hypertension; Z88.0 Allergy status to penicillin; Z79.899 Other long term (current) drug therapy; Y90.8 Blood alcohol level of 240 mg/100 ml or more; W01.0XXA Fall on same level from slipping, tripping and stumbling without subsequent striking against object, initial encounter; Y93.89 Activity, other specified; Y92.89 Other specified places as the place of occurrence of the external cause; Y99.8 Other external cause status
CPT/HCPCS: 99285; 96374; 96361; 96375; 96376; 71260; 74177; 85025; 80048; 80076; 85007; 81001; 36415; 85730; 86850; 80320; J2060; J2405 ×2; J7030 ×2; Q9967; G0480

== ENCOUNTER 2022-05-20 11:49 | Inpatient (IN) | payer MEDICAID ==
[~2022-05-20] VITALS: Ht 170.2 cm; Wt 83.0 kg
[2022-05-20] MEDS ORDERED: ONDANSETRON HCL/PF 4 MG/2 ML VIAL IVP ONE (12:30)
[2022-05-20] MEDS ORDERED: IV NS 0.9% 1,000 ML BAG IV ONE (12:30)
[2022-05-20] MEDS ORDERED: ENALAPRILAT DIHYD. (2.5MG/2ML) 1.25 MG/ML VIAL IV ONE ×2 (12:30→12:51)
[2022-05-20 12:45] LABS: BASOPHILS % (AUTO) 0.3 % (0.0-2.0); EOSINOPHILS % (AUTO) 0.2 % (0.0-6.0); HEMATOCRIT 45 % (39-51); HEMOGLOBIN 15.2 g/dL (13.5-17.5); LYMPHOCYTES # (AUTO) 0.8 K/uL (0.8-4.8); LYMPHOCYTES % (AUTO) 26.7 % (20.0-44.0); MEAN CORPUSCULAR HGB CONC 34 g/dl (31.0-36.0); MEAN CORPUSCULAR VOLUME 93 fL (80-96); MONOCYTES # (AUTO) 0.1 K/uL (0.1-1.30); MONOCYTES % (AUTO) 3.3 % (2.0-12.0); NEUTROPHILS % (AUTO) 69.5 % (43.0-81.0); RED BLOOD CELL COUNT(AUTO) 4.76 MIL/uL (4.5-6.0); WHITE BLOOD COUNT (AUTO) 2.8 K/uL (4.3-11.0)
[2022-05-20] MEDS ORDERED: ONDANSETRON HCL/PF 4 MG/2 ML VIAL ONE (12:51)
[2022-05-20 12:57] LABS: PLATELET COUNT (AUTO) 37 K/uL (150-450)
[2022-05-20 13:30] LABS: ALANINE AMINOTRANSFERASE 109 U/L (12-78); ALBUMIN 4.3 g/dL (3.4-5.0); ALKALINE PHOSPHATASE 62 U/L (46-116); ASPARTATE AMINOTRANSFERASE 130 U/L (15-37); BILIRUBIN,DIRECT 0.5 mg/dL (0.0-0.2); BILIRUBIN,TOTAL 1.1 mg/dL (0.2-1.0); CALCIUM, SERUM 8.2 mg/dL (8.5-10.1); CARBON DIOXIDE 24 mmol/L (21-32); CHLORIDE 103 mmol/L (98-107); CREATININE 0.8 mg/dL (0.6-1.3); GLUCOSE 117 mg/dL (74-106); POTASSIUM 3.7 mmol/L (3.5-5.1); SODIUM SERUM 142 mmol/L (136-145); TOTAL PROTEIN, SERUM 8.4 g/dL (6.4-8.2); UREA NITROGEN, BLOOD 6 mg/dL (7-18)
[2022-05-20] MEDS ORDERED: ACETAMINOPHEN 650 MG/SUPP.RECT RC PRN (15:00)
[2022-05-20] MEDS ORDERED: MAGNESIUM HYDROXIDE 30 ML UDC PO PRN (15:00)
[2022-05-20] MEDS ORDERED: MORPHINE SULFATE INJ 2 MG/ML DISP.SYRIN IV PRN (15:00)
[2022-05-20] MEDS ORDERED: NITROGLYCERIN PACKET 1 GM PACKET TD ONE (15:00)
[2022-05-20] MEDS ORDERED: MAG HYDROX/AL HYDROX/SIMETH 30 ML UDC PO PRN (15:00)
[2022-05-20] MEDS ORDERED: ACETAMINOPHEN 325 MG TABLET PO PRN (15:00)
[2022-05-20] MEDS ORDERED: NITROGLYCERIN PACKET 1 GM PACKET ONE (15:13)
[2022-05-20] MEDS ORDERED: FOLIC ACID 1 MG TABLET PO ONE (15:30)
[2022-05-20] MEDS ORDERED: THIAMINE HCL 100 MG TABLET PO ONE (15:30)
[2022-05-20] MEDS ORDERED: LORAZEPAM INJ 2 MG/ML VIAL IV SCH (16:00)
[2022-05-20] MEDS ORDERED: LORAZEPAM 1 MG TABLET PO ONE (16:30)
[2022-05-20] MEDS ORDERED: LORAZEPAM 1 MG TABLET ONE (16:35)
[2022-05-20] MEDS: CHLORDIAZEPOXIDE HCL 25 MG CAPSULE PO SCH ×2 (17:00→22:00)
[2022-05-20] MEDS: ONDANSETRON HCL/PF 4 MG/2 ML VIAL IVP PRN (18:45)
[2022-05-20] MEDS: IV NS 0.9% 1,000 ML IV SCH (19:47)
[2022-05-20 20:00] VITALS: BP 144/72
[2022-05-20] MEDS: METOPROLOL TARTRATE 25 MG TABLET PO SCH (20:49)
[2022-05-20] MEDS: LORAZEPAM INJ 2 MG/ML VIAL IV PRN (20:51)
[2022-05-21] VITALS: BP 127/62
[2022-05-21] MEDS: LORAZEPAM INJ 2 MG/ML VIAL IV PRN (01:50)
[2022-05-21 04:00] VITALS: BP 141/64
[2022-05-21] MEDS: IV NS 0.9% 1,000 ML IV SCH ×3 (05:12→22:39)
[2022-05-21] MEDS: ONDANSETRON HCL/PF 4 MG/2 ML VIAL IVP PRN ×2 (05:21→11:39)
[2022-05-21 06:28] LABS: BAND % (MANUAL) 2 % (0.0-5.0); BASOPHILS % (MANUAL) 0 % (0.0-2.0); EOSINOPHILS % (MANUAL) 0 % (0-4); LYMPHOCYTES % (MANUAL) 24 % (16-48); MONOCYTES % (MANUAL) 5 % (0-11.0); NEUTROPHILS % (MANUAL) 69 (42-76)
[2022-05-21 07:00] VITALS: BP 145/74
[2022-05-21 07:07] LABS: BASOPHILS % (AUTO) 0.2 % (0.0-2.0); EOSINOPHILS % (AUTO) 0.1 % (0.0-6.0); HEMATOCRIT 40 % (39-51); HEMOGLOBIN 13.8 g/dL (13.5-17.5); LYMPHOCYTES # (AUTO) 1.1 K/uL (0.8-4.8); LYMPHOCYTES % (AUTO) 23.3 % (20.0-44.0); MEAN CORPUSCULAR HGB CONC 34 g/dl (31.0-36.0); MEAN CORPUSCULAR VOLUME 94 fL (80-96); MONOCYTES # (AUTO) 0.3 K/uL (0.1-1.30); MONOCYTES % (AUTO) 5.9 % (2.0-12.0); NEUTROPHILS # (AUTO) 3.3 K/uL (1.8-8.9); NEUTROPHILS % (AUTO) 70.5 % (43.0-81.0); RED BLOOD CELL COUNT(AUTO) 4.27 MIL/uL (4.5-6.0); WHITE BLOOD COUNT (AUTO) 4.7 K/uL (4.3-11.0)
[2022-05-21 07:35] LABS: THYROID STIMULATING HORMONE 1.359 uIU/mL (0.358-3.74)
[2022-05-21 07:48] LABS: CALCIUM, SERUM 7.9 mg/dL (8.5-10.1); CREATININE 0.9 mg/dL (0.6-1.3); POTASSIUM 3.9 mmol/L (3.5-5.1)
[2022-05-21 07:49] LABS: MAGNESIUM 1.8 mg/dL (1.8-2.4); PHOSPHORUS 2.5 mg/dL (2.5-4.9)
[2022-05-21 07:51] LABS: PLATELET COUNT (AUTO) 34 K/uL (150-450)
[2022-05-21] MEDS: PANTOPRAZOLE 40 MG TABLET.DR PO SCH (08:31)
[2022-05-21] MEDS: CHLORDIAZEPOXIDE HCL 25 MG CAPSULE PO SCH ×4 (08:32→21:44)
[2022-05-21] MEDS: METOPROLOL TARTRATE 25 MG TABLET PO SCH (08:34)
[2022-05-21] MEDS: MULTIVITAMINS,THERAGRAN 1 UDTAB TABLET PO SCH (08:34)
[2022-05-21] MEDS: THIAMINE HCL 100 MG TABLET PO SCH (08:35)
[2022-05-21] MEDS: FOLIC ACID 1 MG TABLET PO SCH (08:37)
[2022-05-21 12:11] LABS: BAND % (MANUAL) 4 % (0.0-5.0); BASOPHILS % (MANUAL) 0 % (0.0-2.0); EOSINOPHILS % (MANUAL) 0 % (0-4); LYMPHOCYTES % (MANUAL) 21 % (16-48); MONOCYTES % (MANUAL) 8 % (0-11.0); NEUTROPHILS % (MANUAL) 67 (42-76)
[2022-05-21 13:00] VITALS: BP 145/74
[2022-05-21] MEDS: METOPROLOL TARTRATE 50 MG TABLET PO SCH ×2 (13:05→21:45)
[2022-05-21] MEDS ORDERED: NITROGLYCERIN 0.4 MG/TAB BOTTLE ONE (14:01)
[2022-05-21] MEDS ORDERED: CT SWABBABLE VALVE TRANS SET 1 EA INFUS.SET MC ONE (14:01)
[2022-05-21] MEDS ORDERED: IV NS 0.9% 250 ML IV ONE (14:01)
[2022-05-21] MEDS ORDERED: IOHEXOL-350 100 ML VIAL IV ONE (14:01)
[2022-05-21] MEDS ORDERED: METOPROLOL TARTRATE INJ 5 MG/5 ML AMPUL ONE (14:01)
[2022-05-21] MEDS: METOPROLOL TARTRATE INJ 5 MG/5 ML AMPUL IVP PRN ×5 (14:05→14:25)
[2022-05-21] MEDS ORDERED: NITROGLYCERIN 0.4 MG/TAB BOTTLE SL ONE (14:30)
[2022-05-21 16:19] VITALS: BP 122/77
[2022-05-21 20:00] VITALS: BP 130/68
[2022-05-22 04:00] VITALS: BP 133/68
[2022-05-22 07:16] LABS: BASOPHILS % (AUTO) 0.4 % (0.0-2.0); EOSINOPHILS % (AUTO) 0.7 % (0.0-6.0); HEMATOCRIT 41 % (39-51); LYMPHOCYTES % (AUTO) 27.1 % (20.0-44.0); MEAN CORPUSCULAR HGB CONC 34 g/dl (31.0-36.0); MEAN CORPUSCULAR VOLUME 94 fL (80-96); MONOCYTES # (AUTO) 0.2 K/uL (0.1-1.30); MONOCYTES % (AUTO) 6.7 % (2.0-12.0); NEUTROPHILS # (AUTO) 2.3 K/uL (1.8-8.9); NEUTROPHILS % (AUTO) 65.1 % (43.0-81.0); RED BLOOD CELL COUNT(AUTO) 4.41 MIL/uL (4.5-6.0); WHITE BLOOD COUNT (AUTO) 3.5 K/uL (4.3-11.0)
[2022-05-22 07:31] LABS: PLATELET COUNT (AUTO) 28 K/uL (150-450)
[2022-05-22 07:47] LABS: CALCIUM, SERUM 8.2 mg/dL (8.5-10.1); CREATININE 0.8 mg/dL (0.6-1.3); MAGNESIUM 1.7 mg/dL (1.8-2.4); PHOSPHORUS 2.6 mg/dL (2.5-4.9); POTASSIUM 3.7 mmol/L (3.5-5.1)
[2022-05-22 08:00] VITALS: BP 150/80
[2022-05-22] MEDS: PANTOPRAZOLE 40 MG TABLET.DR PO SCH (08:25)
[2022-05-22] MEDS: FOLIC ACID 1 MG TABLET PO SCH (08:26)
[2022-05-22] MEDS: CHLORDIAZEPOXIDE HCL 25 MG CAPSULE PO SCH (08:26)
[2022-05-22 08:29] VITALS: BP 150/80
[2022-05-22] MEDS: METOPROLOL TARTRATE 50 MG TABLET PO SCH (08:29)
[2022-05-22] MEDS: THIAMINE HCL 100 MG TABLET PO SCH (08:29)
[2022-05-22] MEDS: MULTIVITAMINS,THERAGRAN 1 UDTAB TABLET PO SCH (08:29)
[2022-05-22] MEDS ORDERED: CHLO25CA22 PO ×3 (10:21)
[2022-05-22] MEDS ORDERED: MAGNESIUM OXIDE 400 MG TABLET PO ONE (11:30)
[2022-05-22 19:23] LABS: EOSINOPHILS % (MANUAL) 1 % (0-4); LYMPHOCYTES % (MANUAL) 31 % (16-48); MONOCYTES % (MANUAL) 6 % (0-11.0); NEUTROPHILS % (MANUAL) 62 (42-76)
== END 2022-05-22 11:00 | disposition home or self-care (01) | DRG 661 ==
LOC: ER 11:51 → TELE 17:43 → MED 05-22 10:21
PROVIDERS: ADMIT Nurse Practitioner Acute Care; ATTEND Nurse Practitioner Acute Care
DX: D69.6 Thrombocytopenia, unspecified (principal); I21.A1 Myocardial infarction type 2; F10.239 Alcohol dependence with withdrawal, unspecified; I10 Essential (primary) hypertension; I25.10 Atherosclerotic heart disease of native coronary artery without angina pectoris; Z88.0 Allergy status to penicillin; Z20.822 Contact with and (suspected) exposure to COVID-19; D61.818 Other pancytopenia; R74.01 Elevation of levels of liver transaminase levels; D72.819 Decreased white blood cell count, unspecified; Y90.9 Presence of alcohol in blood, level not specified
CPT/HCPCS: 36415; 71045-TC; 75574; 76700-TC; 80048-TC; 80061-TC; 80076-TC; 83735-TC; 84100-TC; 84443-TC; 84484-TC; 85025-TC; 85730-TC; 87081-TC; A4223; C9803; G0378; J2060; J2405; J3490; J7030; J7050; Q9967

== ENCOUNTER 2022-06-25 06:47 | Emergency (ER) | payer MEDICAID ==
[~2022-06-25] VITALS: Ht 170.2 cm; Wt 81.6 kg
[~2022-06-25 06:47] MED LIST changes: +CHLO25CA22 PO
--- NOTE | 2022-06-25 07:00 | NUR ---
BIBSELF C/O ABD PAIN +N/V X3 DAYS. A/OX4. TOLERATING R/A WELL WITH NO RESP DISTRESS. SAFETY MEASURES IN PLACE.
--- NOTE | 2022-06-25 07:06 | NUR ---
DR TRAVIS ZHU AT PT'S BEDSIDE FOR EVAL
[2022-06-25] MEDS ORDERED: IV NS 0.9% 1,000 ML BAG IV ONE (07:30)
[2022-06-25] MEDS ORDERED: ONDANSETRON HCL/PF 4 MG/2 ML VIAL IVP ONE (07:30)
[2022-06-25] MEDS ORDERED: ONDANSETRON HCL/PF 4 MG/2 ML VIAL ONE (07:39)
[2022-06-25 07:45] LABS: BASOPHILS % (AUTO) 0.1 % (0.0-2.0); HEMATOCRIT 41 % (39-51); HEMOGLOBIN 13.9 g/dL (13.5-17.5); LYMPHOCYTES # (AUTO) 0.6 K/uL (0.8-4.8); LYMPHOCYTES % (AUTO) 7.9 % (20.0-44.0); MEAN CORPUSCULAR HGB CONC 34 g/dl (31.0-36.0); MEAN CORPUSCULAR VOLUME 92 fL (80-96); MONOCYTES # (AUTO) 0.9 K/uL (0.1-1.30); MONOCYTES % (AUTO) 12.4 % (2.0-12.0); NEUTROPHILS % (AUTO) 79.6 % (43.0-81.0); PLATELET COUNT (AUTO) 54 K/uL (150-450); RED BLOOD CELL COUNT(AUTO) 4.42 MIL/uL (4.5-6.0); WHITE BLOOD COUNT (AUTO) 7.5 K/uL (4.3-11.0)
[2022-06-25 07:58] LABS: CALCIUM, SERUM 8.2 mg/dL (8.5-10.1); CARBON DIOXIDE 23 mmol/L (21-32); CHLORIDE 96 mmol/L (98-107); CREATININE 1.1 mg/dL (0.6-1.3); GLUCOSE 163 mg/dL (74-106); POTASSIUM 3.9 mmol/L (3.5-5.1); SODIUM SERUM 130 mmol/L (136-145); UREA NITROGEN, BLOOD 10 mg/dL (7-18)
--- NOTE | 2022-06-25 07:59 | NUR ---
URINE SAMPLE COLLECTED
[2022-06-25 08:03] LABS: ALANINE AMINOTRANSFERASE 60 U/L (12-78); ALBUMIN 3.4 g/dL (3.4-5.0); ALKALINE PHOSPHATASE 38 U/L (46-116); ASPARTATE AMINOTRANSFERASE 51 U/L (15-37); BILIRUBIN,DIRECT 0.6 mg/dL (0.0-0.2); BILIRUBIN,TOTAL 1.6 mg/dL (0.2-1.0); LIPASE 480 U/L (73-393); TOTAL PROTEIN, SERUM 7.4 g/dL (6.4-8.2)
[2022-06-25] MEDS ORDERED: SULF1TAB48 PO (08:59)
[2022-06-25] MEDS ORDERED: LOPE-195 PO (08:59)
[2022-06-25] MEDS ORDERED: ONDA4TAB5 PO (08:59)
[2022-06-25 09:17] VITALS: BP 139/49
[2022-06-25 18:12] LABS: BAND % (MANUAL) 2 % (0.0-5.0); LYMPHOCYTES % (MANUAL) 8 % (16-48); METAMYELOCYTES % 1 % (0-0); MONOCYTES % (MANUAL) 12 % (0-11.0); NEUTROPHILS % (MANUAL) 77 (42-76)
== END 2022-06-25 09:18 | disposition home or self-care (01) ==
LOC: ER 06:48
DX: R19.7 Diarrhea, unspecified (principal); R10.84 Generalized abdominal pain; R11.10 Vomiting, unspecified; I10 Essential (primary) hypertension; Z98.890 Other specified postprocedural states; Z88.0 Allergy status to penicillin; Z79.899 Other long term (current) drug therapy
CPT/HCPCS: 99284; 96374; 96361; 93005; 85025; 80048; 83690; 80076; 36415; 84484; 85007; J2405; J7030

== ENCOUNTER 2022-07-11 09:34 | Emergency (ER) | payer MEDICAID ==
[~2022-07-11] VITALS: Ht 170.2 cm; Wt 85.7 kg
[~2022-07-11 09:34] MED LIST changes: +LOPE-195 PO; +ONDA4TAB5 PO; +SULF1TAB48 PO
--- NOTE | 2022-07-11 09:45 | NUR ---
AT [facility] SOFIYA ORELLANA
--- NOTE | 2022-07-11 09:55 | NUR ---
IV ACCESS LEFT AC 18G LEFT FOREARM BLOOD DRAWN AND SENT TO LAB.
--- NOTE | 2022-07-11 09:56 | NUR ---
put on gown monitor and pulse vs wnl. PAIN STARTED 1DAY AGO . DYSURIA AND BLOODY URINE . PT CLAIMS HYPOGASTRIC PAIN RADIATING TO THE BACK. A KNWON UROLITHIASIS PT.
--- NOTE | 2022-07-11 09:57 | NUR ---
URINE SAMPLE COLLECTED AND SENT TO LAB
[2022-07-11 10:00] LABS: BASOPHILS % (AUTO) 0.2 % (0.0-2.0); HEMATOCRIT 42 % (39-51); HEMOGLOBIN 14.1 g/dL (13.5-17.5); LYMPHOCYTES # (AUTO) 1.1 K/uL (0.8-4.8); LYMPHOCYTES % (AUTO) 9.9 % (20.0-44.0); MEAN CORPUSCULAR HGB CONC 34 g/dl (31.0-36.0); MEAN CORPUSCULAR VOLUME 94 fL (80-96); MONOCYTES # (AUTO) 0.8 K/uL (0.1-1.30); MONOCYTES % (AUTO) 6.6 % (2.0-12.0); NEUTROPHILS # (AUTO) 9.4 K/uL (1.8-8.9); NEUTROPHILS % (AUTO) 83.3 % (43.0-81.0); PLATELET COUNT (AUTO) 137 K/uL (150-450); RED BLOOD CELL COUNT(AUTO) 4.47 MIL/uL (4.5-6.0); WHITE BLOOD COUNT (AUTO) 11.3 K/uL (4.3-11.0)
[2022-07-11 10:15] LABS: CREATININE 0.9 mg/dL (0.6-1.3); POTASSIUM 4.1 mmol/L (3.5-5.1)
[2022-07-11 10:21] LABS: ALBUMIN 3.6 g/dL (3.4-5.0); BILIRUBIN,DIRECT 0.5 mg/dL (0.0-0.2); BILIRUBIN,TOTAL 1.8 mg/dL (0.2-1.0); TOTAL PROTEIN, SERUM 8.2 g/dL (6.4-8.2)
[2022-07-11 11:22] LABS: BILIRUBIN,URINE NEGATIVE (NEGATIVE); COLOR,URINE DARK YELLOW (YELLOW); LEUKOCYTE ESTERASE ,URINE 3+ (NEGATIVE); NITRITE, URINE NEGATIVE (NEGATIVE); PROTEIN,URINE 2+ mg/dl (NEGATIVE); UGLUCOSE NEGATIVE (NEGATIVE); UROBILINOGEN,URINE 0.2 EU/dL (0.2)
[2022-07-11] MEDS ORDERED: IBUPROFEN 600 MG TABLET PO ONE (11:30)
[2022-07-11] MEDS ORDERED: IBUPROFEN 600 MG TABLET ONE (11:32)
[2022-07-11 11:33] LABS: BACTERIA,URINE Moderate /HPF (None Seen); RBC,URINE 21-50 /HPF (0-2); SQUAMOUS EPITHELIAL CELL,UR Few /HPF (None Seen); WBC,URINE TOO NUMEROUS TO COUN /HPF (0-3)
[2022-07-11] MEDS ORDERED: CEFTRIAXONE 1GM BAG (ER ONLY) 50 ML IV ONE (11:56)
[2022-07-11] MEDS ORDERED: CEFTRIAXONE 1GM BAG (ER ONLY) 1 GM/50 ML PIGGYBACK IV ONE (12:00)
--- NOTE | 2022-07-11 12:02 | NUR ---
PT CLAIMS HIS LATEST URINE IS YELLOWISH AND LESSER PAIN COMPARED AWHILE AGO. MARY BARRAGAN 1GM
--- NOTE | 2022-07-11 12:48 | NUR ---
ROCEPHIN STOP TIME AT 1245, IVPB TOLERRATED WELL
[2022-07-11] MEDS ORDERED: CEPH500T PO (13:18)
[2022-07-11 13:28] VITALS: BP 135/64
== END 2022-07-11 13:29 | disposition home or self-care (01) ==
LOC: ER 09:39
DX: N12 Tubulo-interstitial nephritis, not specified as acute or chronic (principal); I10 Essential (primary) hypertension; Z98.890 Other specified postprocedural states; Z79.899 Other long term (current) drug therapy; Z88.0 Allergy status to penicillin
CPT/HCPCS: 99285; 96365; 76770; 76870; 85025; 80048; 87086; 83690; 80076; 81001; 36415; 87491; 87591; J0696

== ENCOUNTER 2022-08-04 06:53 | Emergency (ER) | payer MEDICAID ==
[~2022-08-04] VITALS: Ht 170.2 cm; Wt 85.7 kg
[~2022-08-04 06:53] MED LIST changes: +CEPH500T PO
--- NOTE | 2022-08-04 07:03 | NUR ---
wound between groin and testicles., pt to bed 11, not in acute distress. pending provider carmen
--- NOTE | 2022-08-04 07:07 | NUR ---
urine collected and sent to lab
[2022-08-04] MEDS ORDERED: HYDROCODONE/APAP 5/325MG TABLET PO ONE (08:30)
[2022-08-04] MEDS ORDERED: KETOROLAC TROMETHAMINE INJ 30 MG/ML VIAL IM ONE (08:30)
[2022-08-04] MEDS ORDERED: HYDROCODONE/APAP 5/325MG TABLET ONE (08:43)
[2022-08-04] MEDS ORDERED: KETOROLAC TROMETHAMINE 15 MG/ML VIAL ONE (08:43)
[2022-08-04] MEDS ORDERED: DOXY100C2 PO (09:43)
[2022-08-04] MEDS ORDERED: CEPH500C2 PO (09:43)
[2022-08-04] MEDS ORDERED: IBUP-1955 PO (09:43)
[2022-08-04] MEDS ORDERED: MUPI22OI2 TP (09:44)
--- NOTE | 2022-08-04 10:24 | NUR ---
Patient discharged to home in stable condition, ambulating. Written and verbal after care instructions given. Patient verbalizes understanding of instruction.
[2022-08-04 10:25] VITALS: BP 140/82
== END 2022-08-04 10:25 | disposition home or self-care (01) ==
LOC: ER 06:53
DX: N49.2 Inflammatory disorders of scrotum (principal); I10 Essential (primary) hypertension; Z79.899 Other long term (current) drug therapy; Z88.0 Allergy status to penicillin
CPT/HCPCS: 99285; 96372; 76870; J1885

== ENCOUNTER 2023-02-15 22:08 | Emergency (ER) | payer MEDICAID ==
[~2023-02-15] VITALS: Ht 170.2 cm; Wt 85.7 kg
[~2023-02-15 22:08] MED LIST changes: +CEPH500C2 PO; +DOXY100C2 PO; +IBUP-1955 PO; +MUPI22OI2 TP
[2023-02-15 22:30] VITALS: TEMP 98.5
[2023-02-15 23:31] LABS: BASOPHILS % (AUTO) 0.3 % (0.0-2.0); EOSINOPHILS % (AUTO) 0.5 % (0.0-6.0); HEMATOCRIT 46 % (39-51); HEMOGLOBIN 15.6 g/dL (13.5-17.5); LYMPHOCYTES # (AUTO) 1.8 K/uL (0.8-4.8); LYMPHOCYTES % (AUTO) 33.8 % (20.0-44.0); MEAN CORPUSCULAR HEMOGLOBIN 31 PG (26.0-33.0); MEAN CORPUSCULAR HGB CONC 34 g/dl (31.0-36.0); MEAN CORPUSCULAR VOLUME 91 fL (80-96); MONOCYTES # (AUTO) 0.4 K/uL (0.1-1.30); NEUTROPHILS # (AUTO) 3.1 K/uL (1.8-8.9); NEUTROPHILS % (AUTO) 57.4 % (43.0-81.0); PLATELET COUNT (AUTO) 97 K/uL (150-450); RED BLOOD CELL COUNT(AUTO) 5.03 MIL/uL (4.5-6.0); RED CELL DISTRIBUTION WIDTH 15.8 % (11.5-15.0); WHITE BLOOD COUNT (AUTO) 5.4 K/uL (4.3-11.0)
[2023-02-15 23:36] LABS: CALCIUM, SERUM 8.4 mg/dL (8.5-10.1); CARBON DIOXIDE 22 mmol/L (21-32); CHLORIDE 102 mmol/L (98-107); CREATININE 0.7 mg/dL (0.6-1.3); GLUCOSE 106 mg/dL (74-106); POTASSIUM 3.7 mmol/L (3.5-5.1); SODIUM SERUM 138 mmol/L (136-145); UREA NITROGEN, BLOOD 7 mg/dL (7-18)
[2023-02-15 23:43] LABS: APPEARANCE,URINE CLEAR (CLEAR); BILIRUBIN,URINE NEGATIVE (NEGATIVE); BLOOD, URINE 1+ Ery/uL (NEGATIVE); COLOR,URINE YELLOW (YELLOW); KETONES,URINE NEGATIVE (NEGATIVE); LEUKOCYTE ESTERASE ,URINE NEGATIVE (NEGATIVE); NITRITE, URINE NEGATIVE (NEGATIVE); PROTEIN,URINE 1+ mg/dl (NEGATIVE); UGLUCOSE NEGATIVE (NEGATIVE); UROBILINOGEN,URINE 0.2 EU/dL (0.2)
[2023-02-15 23:44] LABS: ADD URINE CULTURE NO; BACTERIA,URINE Rare /HPF (None Seen); SQUAMOUS EPITHELIAL CELL,UR Few /HPF (None Seen); WBC,URINE 0-2 /HPF (0-3)
[2023-02-15 23:46] LABS: ALANINE AMINOTRANSFERASE 73 U/L (12-78); ALBUMIN 4.2 g/dL (3.4-5.0); ALCOHOL, BLOOD 372 mg/dL (0-10); ALKALINE PHOSPHATASE 58 U/L (46-116); ASPARTATE AMINOTRANSFERASE 76 U/L (15-37); BILIRUBIN,DIRECT 0.4 mg/dL (0.0-0.2); BILIRUBIN,TOTAL 1.1 mg/dL (0.2-1.0); TOTAL PROTEIN, SERUM 8.6 g/dL (6.4-8.2)
[2023-02-15 23:47] LABS: ACETAMINOPHEN <10 ug/ml (10-30); SALICYLATE < 0.2 mg/dL (2.8-20.0)
[2023-02-16 00:06] LABS: AMPHETAMINE, URINE NEGATIVE (NEGATIVE); BARBITURATE, URINE NEGATIVE (NEGATIVE); CANNABINOID, URINE NEGATIVE (NEGATIVE); COCCAINE, URINE NEGATIVE (NEGATIVE); OPIATE, URINE NEGATIVE (NEGATIVE); PHENCYCLIDINE SCREEN,URINE NEGATIVE (NEGATIVE)
[2023-02-16 00:18] LABS: BENZODIAZEPINE, URINE POSITIVE (NEGATIVE)
[2023-02-16] MEDS ORDERED: KETOROLAC TROMETHAMINE INJ 30 MG/ML VIAL IM ONE (01:00)
[2023-02-16] MEDS ORDERED: KETOROLAC TROMETHAMINE INJ 30 MG/ML VIAL ONE (01:50)
[2023-02-16 04:23] VITALS: BP 158/79; O2SAT 98
== END 2023-02-16 03:00 | disposition home or self-care (01) ==
LOC: ER 22:12
DX: R51.9 Headache, unspecified (principal); F10.129 Alcohol abuse with intoxication, unspecified; I10 Essential (primary) hypertension; Z88.0 Allergy status to penicillin; Y90.8 Blood alcohol level of 240 mg/100 ml or more
CPT/HCPCS: 99285; 70450; 85025; 80048; 80076; 81001; 36415; 80143; 80320; 80307; 96372; J1885; G0480

== ENCOUNTER 2023-05-12 14:59 | Inpatient (IN) | payer MEDICAID, OTHER ==
[~2023-05-12] VITALS: Ht 170.2 cm; Wt 86.2 kg
[2023-05-12 15:59] LABS: BASOPHILS % (AUTO) 0.1 % (0.0-2.0); CALCIUM, SERUM 8.8 mg/dL (8.5-10.1); CARBON DIOXIDE 26 mmol/L (21-32); CHLORIDE 98 mmol/L (98-107); CREATININE 0.8 mg/dL (0.6-1.3); EOSINOPHILS % (AUTO) 0.2 % (0.0-6.0); GLUCOSE 113 mg/dL (74-106); HEMATOCRIT 39 % (39-51); HEMOGLOBIN 13.7 g/dL (13.5-17.5); LYMPHOCYTES # (AUTO) 1.6 K/uL (0.8-4.8); LYMPHOCYTES % (AUTO) 34.3 % (20.0-44.0); MEAN CORPUSCULAR HEMOGLOBIN 31 PG (26.0-33.0); MEAN CORPUSCULAR HGB CONC 36 g/dl (31.0-36.0); MEAN CORPUSCULAR VOLUME 88 fL (80-96); MONOCYTES # (AUTO) 0.4 K/uL (0.1-1.30); MONOCYTES % (AUTO) 8.1 % (2.0-12.0); NEUTROPHILS # (AUTO) 2.7 K/uL (1.8-8.9); NEUTROPHILS % (AUTO) 57.3 % (43.0-81.0); PLATELET COUNT (AUTO) 51 K/uL (150-450); POTASSIUM 3.7 mmol/L (3.5-5.1); RED CELL DISTRIBUTION WIDTH 13.9 % (11.5-15.0); SODIUM SERUM 136 mmol/L (136-145); UREA NITROGEN, BLOOD 8 mg/dL (7-18); WHITE BLOOD COUNT (AUTO) 4.7 K/uL (4.3-11.0)
[2023-05-12 16:13] LABS: LYMPHOCYTES % (MANUAL) 35 % (16-48); MONOCYTES % (MANUAL) 10 % (0-11.0); NEUTROPHILS % (MANUAL) 55 (42-76)
[2023-05-12 16:14] LABS: PLATELET ESTIMATE DECREASED
[2023-05-12] MEDS ORDERED: ASPIRIN 81 MG TAB.CHEW ONE (16:37)
[2023-05-12] MEDS: IV NS 0.9% 1,000 ML BAG IV ONE (16:43)
[2023-05-12] MEDS: ASPIRIN 81 MG TAB.CHEW PO ONE (16:44)
[2023-05-12] MEDS ORDERED: ONDANSETRON HCL/PF 4 MG/2 ML VIAL IVP PRN (17:00)
[2023-05-12] MEDS ORDERED: ACETAMINOPHEN 325 MG TABLET PO PRN (17:00)
[2023-05-12] MEDS ORDERED: PANTOPRAZOLE 40 MG VIAL ONE (17:33)
[2023-05-12] MEDS ORDERED: PROPARACAINE HCL OPHTH 15 ML BOTTLE ONE (17:34)
[2023-05-12] MEDS: PANTOPRAZOLE 40 MG VIAL IV SCH (17:34)
[2023-05-12] MEDS ORDERED: LOSA25TA27 PO (17:53)
[2023-05-12] MEDS ORDERED: HYDR25CA PO (17:53)
[2023-05-12] MEDS ORDERED: METO50TA16 PO (17:53)
[2023-05-12 17:59] LABS: BILIRUBIN,DIRECT 0.4 mg/dL (0.0-0.2); BILIRUBIN,TOTAL 1.8 mg/dL (0.2-1.0); TOTAL PROTEIN, SERUM 8.1 g/dL (6.4-8.2)
[2023-05-12 18:17] LABS: AMPHETAMINE, URINE NEGATIVE (NEGATIVE); BARBITURATE, URINE NEGATIVE (NEGATIVE); BENZODIAZEPINE, URINE NEGATIVE (NEGATIVE); CANNABINOID, URINE NEGATIVE (NEGATIVE); COCCAINE, URINE NEGATIVE (NEGATIVE); OPIATE, URINE NEGATIVE (NEGATIVE); PHENCYCLIDINE SCREEN,URINE NEGATIVE (NEGATIVE)
[2023-05-12 20:00] VITALS: BP 149/82; TEMP 99.1; O2SAT 97
[2023-05-12] MEDS: IV NS 0.9% 1,000 ML IV PRN (20:17)
[2023-05-12] MEDS: CHLORDIAZEPOXIDE HCL 25 MG CAPSULE PO SCH (20:37)
[2023-05-12] MEDS: ENOXAPARIN SODIUM 40 MG/0.4 ML DISP.SYRIN SQ SCH (20:39)
[2023-05-12] MEDS ORDERED: hydrOXYzine PAMOATE 25 MG CAPSULE PO PRN (21:00)
[2023-05-12] MEDS: ATORVASTATIN 10 MG TABLET PO SCH (21:05)
[2023-05-12] MEDS: METOPROLOL TARTRATE 50 MG TABLET PO SCH (21:05)
[2023-05-12] MEDS: MORPHINE SULFATE INJ 2 MG/ML DISP.SYRIN IV PRN (21:29)
[2023-05-13] VITALS: BP 126/62; TEMP 98.8; O2SAT 96
[2023-05-13 04:00] VITALS: BP 126/58; TEMP 98.1; O2SAT 98
[2023-05-13 07:11] LABS: BASOPHILS % (AUTO) 0.3 % (0.0-2.0); HEMATOCRIT 37 % (39-51); HEMOGLOBIN 12.8 g/dL (13.5-17.5); LYMPHOCYTES % (AUTO) 53.9 % (20.0-44.0); MEAN CORPUSCULAR HEMOGLOBIN 31 PG (26.0-33.0); MEAN CORPUSCULAR HGB CONC 35 g/dl (31.0-36.0); MEAN CORPUSCULAR VOLUME 90 fL (80-96); MONOCYTES # (AUTO) 0.2 K/uL (0.1-1.30); MONOCYTES % (AUTO) 8.4 % (2.0-12.0); NEUTROPHILS # (AUTO) 0.7 K/uL (1.8-8.9); NEUTROPHILS % (AUTO) 36.4 % (43.0-81.0); RED BLOOD CELL COUNT(AUTO) 4.08 MIL/uL (4.5-6.0); RED CELL DISTRIBUTION WIDTH 13.7 % (11.5-15.0)
[2023-05-13 07:34] LABS: PHOSPHORUS 3.7 mg/dL (2.5-4.9); POTASSIUM 3.6 mmol/L (3.5-5.1)
[2023-05-13 07:47] LABS: PLATELET COUNT (AUTO) 28 K/uL (150-450); WHITE BLOOD COUNT (AUTO) 1.9 K/uL (4.3-11.0)
[2023-05-13 08:00] VITALS: BP 159/71; TEMP 98.6; O2SAT 97
[2023-05-13] MEDS: METOPROLOL TARTRATE 50 MG TABLET PO SCH (08:47)
[2023-05-13] MEDS: LOSARTAN POTASSIUM 25 MG TABLET PO SCH (08:47)
[2023-05-13] MEDS: ASPIRIN 81 MG TAB.CHEW PO SCH (08:57)
[2023-05-13] MEDS: PANTOPRAZOLE 40 MG TABLET.DR PO SCH (09:00)
[2023-05-13 09:07] LABS: CALCIUM, SERUM 8.3 mg/dL (8.5-10.1); CREATININE 0.7 mg/dL (0.6-1.3); MAGNESIUM 1.9 mg/dL (1.8-2.4)
[2023-05-13 12:00] VITALS: BP 128/71; TEMP 99; O2SAT 99
[2023-05-13 12:17] LABS: ANISOCYTOSIS 1+; BASOPHILS % (MANUAL) 0 % (0.0-2.0); EOSINOPHILS % (MANUAL) 0 % (0-4); LYMPHOCYTES % (MANUAL) 48 % (16-48); MONOCYTES % (MANUAL) 10 % (0-11.0); NEUTROPHILS % (MANUAL) 42 (42-76); PLATELET ESTIMATE DECREASED
[2023-05-13] MEDS ORDERED: ISOS30TA86 PO (15:09)
[2023-05-13] MEDS ORDERED: PANT40TA2 PO (15:10)
[2023-05-13] MEDS ORDERED: FAMO20TA8 PO (15:10)
[2023-05-13] MEDS ORDERED: MULT-447 PO (15:11)
[2023-05-13 16:00] VITALS: BP 146/69; TEMP 98.4; O2SAT 97
[2023-05-13] MEDS: MULTIVIT W/MINERALS 1 TAB TABLET PO SCH (16:22)
[2023-05-13] MEDS: FAMOTIDINE (20 MG) 20 MG TABLET PO SCH (16:22)
[2023-05-13] MEDS: ISOSORBIDE MONONITRATE (30MG) 30 MG TAB.SR.24H PO SCH (16:23)
[2023-05-14 07:06] LABS: CALCIUM, SERUM 8.9 mg/dL (8.5-10.1); CREATININE 0.7 mg/dL (0.6-1.3); MAGNESIUM 1.8 mg/dL (1.8-2.4); PHOSPHORUS 3.7 mg/dL (2.5-4.9); POTASSIUM 3.5 mmol/L (3.5-5.1)
[2023-05-14 08:00] VITALS: BP 118/94; TEMP 98.4; O2SAT 98
[2023-05-14 08:22] LABS: BASOPHILS % (AUTO) 0.2 % (0.0-2.0); EOSINOPHILS % (AUTO) 1.5 % (0.0-6.0); HEMATOCRIT 39 % (39-51); HEMOGLOBIN 13.6 g/dL (13.5-17.5); LYMPHOCYTES % (AUTO) 33.4 % (20.0-44.0); MEAN CORPUSCULAR HEMOGLOBIN 31 PG (26.0-33.0); MEAN CORPUSCULAR HGB CONC 35 g/dl (31.0-36.0); MEAN CORPUSCULAR VOLUME 89 fL (80-96); MONOCYTES # (AUTO) 0.2 K/uL (0.1-1.30); MONOCYTES % (AUTO) 5.1 % (2.0-12.0); NEUTROPHILS # (AUTO) 1.8 K/uL (1.8-8.9); NEUTROPHILS % (AUTO) 59.8 % (43.0-81.0); RED BLOOD CELL COUNT(AUTO) 4.35 MIL/uL (4.5-6.0); RED CELL DISTRIBUTION WIDTH 14.2 % (11.5-15.0); WHITE BLOOD COUNT (AUTO) 3.1 K/uL (4.3-11.0)
[2023-05-14 08:24] LABS: PLATELET COUNT (AUTO) 35 K/uL (150-450)
[2023-05-14 08:42] VITALS: BP 150/70; TEMP 98.1; O2SAT 98
[2023-05-14 11:00] VITALS: BP 119/63; TEMP 97.7; O2SAT 98
[2023-05-14 11:16] LABS: ANISOCYTOSIS 1+; BASOPHILS % (MANUAL) 0 % (0.0-2.0); EOSINOPHILS % (MANUAL) 0 % (0-4); LYMPHOCYTES % (MANUAL) 35 % (16-48); MONOCYTES % (MANUAL) 9 % (0-11.0); NEUTROPHILS % (MANUAL) 56 (42-76); PLATELET ESTIMATE DECREASED
[2023-05-14] MEDS ORDERED: IV NS 0.9% 250 ML IV ONE (13:05)
[2023-05-14] MEDS ORDERED: NITROGLYCERIN 0.4 MG/TAB BOTTLE ONE (13:05)
[2023-05-14] MEDS ORDERED: CT SWABBABLE VALVE TRANS SET 1 EA INFUS.SET MC ONE (13:05)
[2023-05-14] MEDS ORDERED: METOPROLOL TARTRATE INJ 5 MG/5 ML AMPUL ONE (13:05)
[2023-05-14] MEDS ORDERED: IOHEXOL-350 100 ML VIAL IV ONE (13:05)
[2023-05-14] MEDS: METOPROLOL TARTRATE INJ 5 MG/5 ML AMPUL IVP PRN (13:10)
[2023-05-14] MEDS: NITROGLYCERIN 0.4 MG/TAB BOTTLE SL ONE (13:20)
[2023-05-14 16:04] VITALS: BP 125/70; TEMP 98.4; O2SAT 98
[2023-05-14 20:00] VITALS: BP 127/71; TEMP 98.2; O2SAT 99
[2023-05-15] VITALS: BP 110/61; TEMP 98; O2SAT 98
[2023-05-15 04:00] VITALS: BP 115/66; TEMP 98.1; O2SAT 98
[2023-05-15 07:07] LABS: BASOPHILS % (AUTO) 0.3 % (0.0-2.0); EOSINOPHILS # (AUTO) 0.1 K/uL (0.0-0.7); EOSINOPHILS % (AUTO) 1.5 % (0.0-6.0); HEMATOCRIT 41 % (39-51); HEMOGLOBIN 14.2 g/dL (13.5-17.5); LYMPHOCYTES # (AUTO) 1.5 K/uL (0.8-4.8); LYMPHOCYTES % (AUTO) 38.1 % (20.0-44.0); MEAN CORPUSCULAR HEMOGLOBIN 31 PG (26.0-33.0); MEAN CORPUSCULAR HGB CONC 35 g/dl (31.0-36.0); MEAN CORPUSCULAR VOLUME 90 fL (80-96); MONOCYTES # (AUTO) 0.2 K/uL (0.1-1.30); MONOCYTES % (AUTO) 5.5 % (2.0-12.0); NEUTROPHILS # (AUTO) 2.2 K/uL (1.8-8.9); NEUTROPHILS % (AUTO) 54.6 % (43.0-81.0); RED BLOOD CELL COUNT(AUTO) 4.56 MIL/uL (4.5-6.0); RED CELL DISTRIBUTION WIDTH 14.1 % (11.5-15.0)
[2023-05-15 07:20] LABS: CREATININE 0.7 mg/dL (0.6-1.3); MAGNESIUM 1.8 mg/dL (1.8-2.4); PHOSPHORUS 4.1 mg/dL (2.5-4.9); POTASSIUM 3.5 mmol/L (3.5-5.1)
[2023-05-15 07:39] LABS: PLATELET COUNT (AUTO) 46 K/uL (150-450)
[2023-05-15 09:15] VITALS: BP 114/66; TEMP 97.9; O2SAT 99
[2023-05-15 09:37] LABS: ANISOCYTOSIS 1+; EOSINOPHILS % (MANUAL) 2 % (0-4); LYMPHOCYTES % (MANUAL) 35 % (16-48); MONOCYTES % (MANUAL) 5 % (0-11.0); NEUTROPHILS % (MANUAL) 58 (42-76); PLATELET ESTIMATE DECREASED
== END 2023-05-15 11:55 | disposition home or self-care (01) | DRG 775 ==
LOC: ER 14:59 → TELE 18:23
PROVIDERS: ADMIT Nurse Practitioner Acute Care; ATTEND Nurse Practitioner Acute Care
DX: F10.129 Alcohol abuse with intoxication, unspecified (principal); D61.818 Other pancytopenia; I21.A1 Myocardial infarction type 2; G92.9 Unspecified toxic encephalopathy; I25.10 Atherosclerotic heart disease of native coronary artery without angina pectoris; D69.59 Other secondary thrombocytopenia; I10 Essential (primary) hypertension; Z88.0 Allergy status to penicillin; F41.9 Anxiety disorder, unspecified; G47.00 Insomnia, unspecified; R74.01 Elevation of levels of liver transaminase levels; Y90.0 Blood alcohol level of less than 20 mg/100 ml; D72.819 Decreased white blood cell count, unspecified; K70.9 Alcoholic liver disease, unspecified
CPT/HCPCS: 36415; 71045-TC; 75574; 76700-TC; 80048-TC; 80061-TC; 80076-TC; 82140-TC; 83735-TC; 84100-TC; 84484-TC; 85025-TC; 93307-TC; A4223; C9113; G0378; G0480; J1650; J2270; J3490; J7030; J7050; Q9967